=== PATIENT | male | born 1930 | race Caucasian/White ===

== ENCOUNTER 2020-10-20 10:26 | Observation (INO) | payer MEDICARE, BC, MEDICAID ==
[2020-10-20] MEDS ORDERED: Acetaminophen 500 MG Tab PO ONE (11:37)
[2020-10-20] MEDS ORDERED: traMADol 50 MG Tab PO ONE (11:37)
[2020-10-20] MEDS: traMADol 50 MG Tab PO ONE ×2 (11:43→12:56)
--- NOTE | 2020-10-20 14:00 | CR ---
INDICATION: Fall, left shoulder pain. LEFT SHOULDER: Four images of the left shoulder in three projections were obtained 10/20/20 - no comparisons. There is some sclerosis of the undersurface of the acromion raising question of a degree of impingement. However, the humerus in the glenoid fossa appears to be normally situated. No significant appearing degenerative changes for age could be identified, although there may be some demineralization present. An acute fracture or dislocation was not identified. Adjacent ribs and lung appeared unremarkable. IMPRESSION: No acute fracture or dislocation. MTDD
--- NOTE | 2020-10-20 14:03 | CR ---
INDICATION: Fall, left hip pain. LEFT HIP WITH PELVIS: AP view of the pelvis and left hip with a lateral of the left hip were obtained 10/20/20 - no comparisons. 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 There is some irregularity at the inferior pubic ramus compatible with a fracture site. There is also comminuted fracture of the superior pubic ramus also on the left. Position and alignment appear to be adequate with moderate deformity. The hip joint itself appears to be intact bilaterally, except to note some narrowing of the craniolateral left hip joint space compared with the right. Sacroiliac joints appear to be intact with minimal hypertrophic degenerative changes suggested. Slightly demineralized bony structures raise question of osteoporosis. IMPRESSION: Left inferior and superior pubic ramus fracture sites with moderate deformity and a degree of comminution at both sites. Adequate position and alignment are probably present. Report was called to ER at 1220 hours. LUIS DANIEL
[2020-10-20] MEDS ORDERED: guaiFENesin 100 MG/5 ML Soln 5 ML UD Cup PO PRN (15:09)
[2020-10-20] MEDS ORDERED: Loperamide 2 MG Cap PO PRN (15:09)
[2020-10-20] MEDS ORDERED: Acetaminophen 325 MG Tab PO PRN (15:09)
[2020-10-20] MEDS ORDERED: Bisacodyl 10 MG Supp RECTAL PRN (15:09)
--- NOTE | 2020-10-20 15:09 | PCM.HP.2 ---
H&P History of Present Illness - General Date of Service: 10/20/20 Admit Problem/Dx: Admission Diagnosis/Problem Admission Diagnosis/Problem Fracture of inferior pubic ramus with routine healing Source of Information: EMS Notes Reviewed, Family - History of Present Illness Initial Comments - Free Text/Narative: Benedicto fell yesterday morning at the [facility] where he resides but today was requiring more assistance with walking having more pain on the left, bruise on the left leg and abrasions on both his knees. Seen in ER and found to have left inferior ramus fracture, comminuted non-displaced, received Tylenol 1000 mg and Tramadol 100 mg and helped with pain. Labs unremarkable. UA pending. COVID negative. L shoulder & L hip Pain Score (Numeric/FACES): 5 - Related Data Allergies/Adverse Reactions: Allergies Allergy/AdvReac Type Severity Reaction Status Date / Time No Known Allergies Allergy Verified 10/20/20 10:36 Home Medications: Home Meds Acetaminophen 650 mg PO Q4HR PRN 10/20/20 [History] Aspirin [Halfprin] 81 mg PO DAILY@1200 10/20/20 [History] Bisacodyl [Laxative Suppository] 10 mg RECTAL BID PRN 10/20/20 [History] Donepezil [Aricept] 5 mg PO DAILY@1800 10/20/20 [History] FLUoxetine HCl [Fluoxetine HCl] 20 mg PO DAILY@1200 10/20/20 [History] Loperamide HCl [Imodium A-D] 2 mg PO ASDIRECTED PRN 10/20/20 [History] Mag Hydrox/Aluminum Hyd/Simeth [Mylanta Maximum Strength Liq] 10 ml PO QID PRN 10/20/20 [History] Magnesium Hydroxide [Milk of Magnesia] 2,400 mg PO DAILY PRN 10/20/20 [History] QUEtiapine [SEROquel] 50 mg PO BEDTIME 10/20/20 [History] carvediloL [Carvedilol] 3.125 mg PO BID@,18 10/20/20 [History] glipiZIDE [Glucotrol] 10 mg PO BID@,18 10/20/20 [History] guaiFENesin [Robitussin] 200 mg PO Q4HR PRN 10/20/20 [History] Past Medical History Cardiovascular History: Reports: CAD, High Cholesterol, Hypertension, [place], Pacemaker Psychiatric History: Reports: Dementia Endocrine/Metabolic History: Reports: Diabetes, Type II - Infectious Disease History Infectious Disease History: Reports: Measles, Mumps - Past Surgical History Head Surgeries/Procedures: Reports: None HEENT Surgical History: Reports: Tonsillectomy Cardiovascular Surgical History: Reports: Pacer Musculoskeletal Surgical History: Reports: Shoulder Replacement Other Musculoskeletal Surgeries/Procedures:: R shoulder Social & Family History - Tobacco Use Tobacco Use Status *Q: Former Tobacco User Years of Tobacco use: 10 Used Tobacco, but Quit: Yes Month/Year Tobacco Last Used: dec - Caffeine Use Caffeine Use: Reports: Coffee, Soda - Recreational Drug Use Recreational Drug Use: No H&P Review of Systems - Review of Systems: Review Of Systems: See Below HEENT: Reports: No Symptoms Pulmonary: Reports: No Symptoms Cardiovascular: Reports: No Symptoms Gastrointestinal: Reports: No Symptoms Genitourinary: Reports: Incontinence Musculoskeletal: Reports: Leg Pain Skin: Reports: Bruising, Wound (abrasions), Lumps (lipoma on her back) Neurological: Reports: Confusion Exam - Exam Exam: See Below - Vital Signs Vital Signs: Last Vital Signs Temp 96.9 F 10/20/20 13:00 Pulse 69 10/20/20 13:56 Resp 18 10/20/20 13:56 BP 109/60 10/20/20 13:56 Pulse Ox 95 10/20/20 13:56 Weight: 160 lb - Exam General: Alert, Oriented (person), Cooperative. No: Mild Distress HEENT: EOMI, Hearing Intact, Mucosa Moist & [place] Lungs: Clear to Auscultation, Normal Respiratory Effort Cardiovascular: Regular Rate, Regular Rhythm GI/Abdominal Exam: Normal Bowel Sounds, Soft, Distended, Tender (diffuse). No: Guarding, Rigid, Rebound (Male) Exam: Deferred Rectal (Males) Exam: Deferred Back Exam: Normal Inspection (5 cm lipoma on left thorax) Extremities: No Pedal Edema, Pallor. No: Joint Swelling, Increased Warmth Skin: Ecchymosis (left posterior hip), Wound (abrasion on right knee, lateral knee, left knee, bilateral elbows.) Neuro Extensive - Mental Status: Disorientation to Time, Memory Loss-Recent Events, Nl Response to Commands - Patient Data Lab Results Last 24 hrs: Laboratory Results - last 24 hr 10/20/20 10/20/20 10/20/20 Range/Units 11:25 11:25 11:40 WBC 8.9 (3.2-10.1) x10-3/uL RBC 4.71 (3.90-5.90) x10(6)uL Hgb 12.8 L (12.9-17.7) g/dL Hct 38.5 (38.3-50.1) % MCV 81.8 (80.8-98.7) fL MCH 27.1 (27.0-33.3) pg MCHC 33.1 (28.7-35.3) g/dL RDW 15.0 (12.4-15.0) % Plt Count 175 (117-477) x10(3)uL MPV 7.8 (6.7-11.0) fL Neut % (Auto) 64.8 (40.3-71.8) % Lymph % (Auto) 24.1 (15.8-45.3) % [place] % (Auto) 8.9 (5.5-15.2) % Eos % (Auto) 1.7 (0.1-6.8) % Baso % (Auto) 0.5 (0.3-3.8) % Neut # (Auto) 5.8 (1.7-6.9) x10-3/uL Lymph # (Auto) 2.1 (0.5-4.5) x10-3/uL [place] # (Auto) 0.8 (0.0-1.2) x10-3/uL Eos # (Auto) 0.2 (0.0-0.6) x10-3/uL Baso # (Auto) 0.0 (0.0-0.3) x10-3/uL Sodium 136 (135-145) mmol/L Potassium 4.1 (3.5-5.3) mmol/L Chloride 98 L (100-110) mmol/L Carbon Dioxide 31 (21-32) mmol/L BUN 16 (7-18) mg/dL Creatinine 1.2 (0.70-1.30) mg/dL Est Cr Clr Drug Dosing 42.84 mL/min Estimated GFR (MDRD) 57 L (>60) BUN/Creatinine Ratio 13.3 (9-20) Glucose 261 H (80-116) mg/dL Calcium 8.5 L (8.6-10.2) mg/dL Total Bilirubin 1.0 (0.1-1.3) mg/dL AST 36 H (5-25) IU/L ALT 21 (12-36) U/L Alkaline Phosphatase 75 (56-112) IU/L Total Protein 7.5 (6.0-8.0) g/dL Albumin 3.0 (2.9-4.5) g/dL Globulin 4.5 g/dL Albumin/Globulin Ratio 0.7 SARS-CoV-2 RNA (EVELYNE) Negative (NEGATIVE) Result Diagrams: 10/20/20 11:25 10/20/20 11:25 James Results Last 24 hrs: Microbiology 10/20/20 11:40 Influenza Type A Antigen Screen - Final Nasopharyngeal Swab NEGATIVE INFLUENZA A VIRUS AG REFERENCE RANGE: NEGATIVE Influenza Type B Antigen Screen - Final NEGATIVE INFLUENZA B VIRUS AG REFERENCE RANGE: NEGATIVE Sepsis Event Note - Evaluation Sepsis Screening Result: No Definite Risk - Focused Exam Vital Signs: Vital Signs Temp Pulse Resp BP Pulse Ox 10/20/20 13:56 69 18 109/60 95 10/20/20 13:30 63 18 116/61 96 10/20/20 13:00 96.9 F 59 L 18 123/57 L 98 10/20/20 12:30 63 16 115/60 99 10/20/20 12:01 61 16 139/59 L 100 10/20/20 11:30 61 18 150/66 H 99 10/20/20 10:26 98.0 F 77 18 151/74 H 96 *Q Meaningful Use (ADM) - VTE *Q VTE Mechanical Contraindications *Q: At Risk for Falls - VTE Risk Assess *Q Each Risk Factor Represents 1 Point: None Total Score 1 Point Risk Factors: 0 Each Risk Factor Represents 2 Points: Patient confined to bed greater than 72 hours Total Score 2 Point Risk Factors: 2 Each Risk Factor Represents 3 Points: Age 75 Years or Greater Total Score 3 Point Risk Factors: 3 Each Risk Factor Represents 5 Points: Hip, Pelvis or Leg Fracture, Less than 1 month Total Score 5 Point Risk Factors: 5 Venous Thromboembolism Risk Factor Score *Q: 10 - Problem List (1) Fracture of left inferior pubic ramus with routine healing SNOMED Code(s): 557235402 ICD Code: S32.592D - OTH FRACTURE OF LEFT PUBIS, SUBS FOR FX W ROUTN HEAL Status: Acute Current Visit: Yes (2) Fall at home SNOMED Code(s): 89339541 ICD Code: W19.XXXA - UNSPECIFIED FALL, INITIAL ENCOUNTER; Y92.009 - UNSP PLACE IN [facility] Status: Acute Current Visit: Yes (3) Dementia SNOMED Code(s): 88094374 ICD Code: F03.90 - UNSPECIFIED DEMENTIA WITHOUT BEHAVIORAL DISTURBANCE Status: Chronic Current Visit: Yes (4) Diabetes SNOMED Code(s): 10451206 ICD Code: E11.9 - TYPE 2 DIABETES MELLITUS WITHOUT COMPLICATIONS Status: Chronic Current Visit: Yes Problem List Initiated/Reviewed/Updated: Yes Orders Last 24hrs: Active Orders 24 hr Category Date Time Status Patient Status Manage Transfer [TRANSFER] Routine ADT 10/20/20 13:18 Active Patient Status [ADT] Routine ADT 10/20/20 14:55 Active Blood Glucose Check, Bedside [RC] BIDMEALS Care 10/20/20 14:55 Active Oxygen Therapy [RC] PRN Care 10/20/20 14:55 Active Up With Assistance [RC] ASDIRECTED Care 10/20/20 14:55 Active VTE/DVT Education [RC] Per Unit Routine Care 10/20/20 14:55 Active Vital Signs [RC] QSHIFT Care 10/20/20 14:55 Active OT Evaluation and Treatment [CONS] Routine Cons 10/20/20 14:55 Active PT Evaluation and Treatment [CONS] Routine Cons 10/20/20 14:55 Active Regular Diet [DIET] Diet 10/20/20 Dinner Active Chest 1V Frontal [CR] Stat Exams 10/20/20 11:36 Taken UA W/MICROSCOPIC [URIN] Stat Lab 10/20/20 11:36 Ordered Acetaminophen [TylenoL] Med 10/20/20 15:00 Ordered 500 mg PO Q6H Ibuprofen [Motrin] Med 10/20/20 15:00 Ordered 200 mg PO Q6H traMADol [Ultram] Med 10/20/20 15:01 Ordered 50 mg PO Q6H PRN Antiembolic Hose [OM.PC] Per Unit Routine Oth 10/20/20 14:58 Ordered Isolation [COMM] Routine Oth 10/20/20 11:35 Ordered Resuscitation Status Routine Resus Stat 10/20/20 14:55 Ordered Medication Orders Acetaminophen (Tylenol) 500 mg PO Q6H MARIA ESTHER Ibuprofen (Motrin) 200 mg PO Q6H MARIA ESTHER Tramadol HCl (Ultram) 50 mg PO Q6H PRN PRN Reason: Pain (moderate 4-6) Assessment/Plan Comment:: 1. Admit for observation for left inferior ramus fracture for pain control and therapies. 2. PT/OT evaluate and treat. 3. Pain: Tylenol 500 mg q6h and Ibuprofen 200 mg q6h, Tramadol 50 mg q6h as needed pain. 4. Diet: Regular, accuchecks bid. 5. Up with assistance. 6. DVT: TEDs, Lovenox 40 mg SQ daily. 7. CODE: DNR/DNI. He is a one person assist at [facility], was 2 person assistance today, would need to be back to baseline. Daughter would like if he needs [place] [facility] or [place]. - Mortality Measure Prognosis:: Good
[2020-10-20] MEDS ORDERED: Aluminum Hydroxide/Magnesium Hydroxide Susp 30 ML Cup PO PRN (15:29)
[2020-10-20] MEDS ORDERED: Magnesium Hydroxide 400 MG/5 ML Susp 30 ML Cup PO PRN (15:30)
[2020-10-20] MEDS ORDERED: Enoxaparin 30 MG/0.3 ML Syringe SUBCUT SCH (16:00)
[2020-10-20] MEDS: Clotrimazole 1% Crm 15 GM Tube TOP SCH ×2 (17:17→20:17)
[2020-10-20] MEDS: Acetaminophen 500 MG Tab PO SCH ×2 (17:18→21:57)
[2020-10-20] MEDS: Ibuprofen 200 MG Tab PO SCH ×2 (17:18→21:57)
[2020-10-20] MEDS: Carvedilol 3.125 MG Tab *PTOM PO SCH (17:19)
[2020-10-20] MEDS: FLUoxetine 20 MG Cap *PTOM PO SCH (17:20)
[2020-10-20] MEDS: GLIPIZIDE 10 MG PO SCH (17:21)
[2020-10-20] MEDS ORDERED: traMADol 50 MG Tab PO PRN (18:00)
[2020-10-20] MEDS ORDERED: DONEPEZIL 5 MG PO SCH (18:00)
--- NOTE | 2020-10-20 18:02 | EDM.PDOC ---
ED HPI GENERAL MEDICAL PROBLEM - General Chief Complaint: Lower Extremity Injury/Pain Stated Complaint: FALL Time Seen by Provider: 10/20/20 10:35 Source of Information: Reports: EMS Notes Reviewed, Family History Limitations: Reports: No Limitations - History of Present Illness INITIAL COMMENTS - FREE TEXT/NARRATIVE: Patient presented to the ED from the [facility] because of a recent fall and he c/o left shoulder and left hip piin. there was no LOC after the fall. He doesn't have any cough/cold, fever,chills, N/V/D. Lower Back Pain Score (Numeric/FACES): 4 L shoulder & L hip Pain Score (Numeric/FACES): 5 - Related Data Allergies Allergy/AdvReac Type Severity Reaction Status Date / Time No Known Allergies Allergy Verified 10/20/20 10:36 Home Meds: Home Meds Acetaminophen 650 mg PO Q4HR PRN 10/20/20 [History] Aspirin [Halfprin] 81 mg PO DAILY@1200 10/20/20 [History] Bisacodyl [Laxative Suppository] 10 mg RECTAL BID PRN 10/20/20 [History] Donepezil [Aricept] 5 mg PO DAILY@1800 10/20/20 [History] FLUoxetine HCl [Fluoxetine HCl] 20 mg PO DAILY@1200 10/20/20 [History] Loperamide HCl [Imodium A-D] 2 mg PO ASDIRECTED PRN 10/20/20 [History] Mag Hydrox/Aluminum Hyd/Simeth [Mylanta Maximum Strength Liq] 10 ml PO QID PRN 10/20/20 [History] Magnesium Hydroxide [Milk of Magnesia] 2,400 mg PO DAILY PRN 10/20/20 [History] QUEtiapine [SEROquel] 50 mg PO BEDTIME 10/20/20 [History] carvediloL [Carvedilol] 3.125 mg PO BID@,18 10/20/20 [History] glipiZIDE [Glucotrol] 10 mg PO BID@,18 10/20/20 [History] guaiFENesin [Robitussin] 200 mg PO Q4HR PRN 10/20/20 [History] Past Medical History Cardiovascular History: Reports: CAD, High Cholesterol, Hypertension, [place], Pacemaker Psychiatric History: Reports: Dementia Endocrine/Metabolic History: Reports: Diabetes, Type II - Infectious Disease History Infectious Disease History: Reports: Measles, Mumps - Past Surgical History Head Surgeries/Procedures: Reports: None HEENT Surgical History: Reports: Tonsillectomy Cardiovascular Surgical History: Reports: Pacer Musculoskeletal Surgical History: Reports: Shoulder Replacement Other Musculoskeletal Surgeries/Procedures:: R shoulder Social & Family History - Tobacco Use Tobacco Use Status *Q: Unknown Ever Used Tobacco Years of Tobacco use: 10 Used Tobacco, but Quit: Yes Month/Year Tobacco Last Used: dec - Caffeine Use Caffeine Use: Reports: Energy Drinks - Recreational Drug Use Recreational Drug Use: No ED ROS GENERAL - Review of Systems Review Of Systems: See Below Constitutional: Reports: No Symptoms HEENT: Reports: No Symptoms Respiratory: Reports: No Symptoms Cardiovascular: Reports: No Symptoms Endocrine: Reports: No Symptoms GI/Abdominal: Reports: No Symptoms : Reports: No Symptoms Musculoskeletal: Reports: Other (left hip pain) Skin: Reports: No Symptoms Neurological: Reports: No Symptoms ED EXAM, GENERAL - Physical Exam Exam: See Below Exam Limited By: No Limitations General Appearance: Alert, No Apparent Distress Ears: Normal External Exam, Normal [place] Nose: Normal Inspection, Normal Mucosa Throat/Mouth: Normal Inspection, Normal Lips, Normal Teeth Head: Atraumatic, Normocephalic Neck: Normal Inspection, Supple, Non-Tender Respiratory/Chest: No Respiratory Distress, Lungs Clear, Normal Breath Sounds Cardiovascular: Normal Peripheral Pulses, Regular Rate, Rhythm, No Edema, No Gallop, No JVD, No Murmur GI/Abdominal: Normal Bowel Sounds, Soft, Distended, Tender (diffuse). No: Guarding, Rigid, Rebound Back Exam: Normal Inspection (5 cm lipoma on left thorax) Extremities: No Pedal Edema, Pallor. No: Joint Swelling, Increased Warmth Course - Vital Signs Text/Narrative:: Labs/CXR/Pelvis and hip xray was discussed with patient There is inferior and superior pubic ramus fracture Tylenol 1000 mg and tramadol 100 mg po x1 with significant relief of his pain Dr. Acevedo-ortho forestry conservation worker at [place] recommended to just treat the patient symptomatically without any restrictions. He is allowed to bear weight for as long as he can tolerate. Last Recorded V/S: Last Vital Signs Temp 36.7 C 10/20/20 17:18 Pulse 0 L 10/20/20 17:19 Resp 18 10/20/20 13:56 BP 0/0 L 10/20/20 17:19 Pulse Ox 95 10/20/20 17:18 - Orders/Labs/Meds Orders: Active Orders 24 hr Category Date Time Status Chest 1V Frontal [CR] Stat Exams 10/20/20 11:36 Taken UA W/MICROSCOPIC [URIN] Stat Lab 10/20/20 11:36 Ordered Medication Orders Acetaminophen (Tylenol Extra Strength) 500 mg PO Q6H [facility] Last Admin: 10/20/20 17:18 Dose: 500 mg Documented by: KENAN Acetaminophen (Tylenol) 650 mg PO Q4H PRN PRN Reason: Fever Al Hydroxide/Mg Hydroxide (Mag-Al Susp) 10 ml PO QID PRN PRN Reason: Indigestion Aspirin (Halfprin) 81 mg PO DAILY [facility] Bisacodyl (Dulcolax) 10 mg RECTAL BID PRN PRN Reason: Constipation Carvedilol (Coreg) 3.125 mg PO BID@1200,1800 [facility] Last Admin: 10/20/20 17:19 Dose: 3.125 mg Documented by: KENAN Clotrimazole (Clotrimazole 1%) 0 gm TOP BID [facility] Last Admin: 10/20/20 17:17 Dose: 1 applic Documented by: KENAN Donepezil HCl (Aricept) 5 mg PO DAILY@1800 [facility] Last Admin: 10/20/20 17:21 Dose: 5 mg Documented by: KENAN Enoxaparin Sodium (Lovenox) 30 mg SUBCUT Q24H [facility] Last Admin: 10/20/20 17:18 Dose: 30 mg Documented by: KENAN Fluoxetine HCl (Prozac) 20 mg PO DAILY@1200 [facility] Last Admin: 10/20/20 17:20 Dose: 20 mg Documented by: KENAN Glipizide (Glucotrol) 10 mg PO BID@1200,1800 [facility] Last Admin: 10/20/20 17:21 Dose: 10 mg Documented by: KENAN Guaifenesin (Robitussin) 200 mg PO Q4H PRN PRN Reason: Cough Ibuprofen (Motrin) 200 mg PO Q6H [facility] Last Admin: 10/20/20 17:18 Dose: 200 mg Documented by: KENAN Loperamide HCl (Imodium) 2 mg PO ASDIRECTED PRN PRN Reason: Diarrhea Magnesium Hydroxide (Milk Of Magnesia) 30 ml PO DAILY PRN PRN Reason: Constipation Quetiapine Fumarate (Seroquel) 50 mg PO BEDTIME MARIA ESTHER Tramadol HCl (Ultram) 50 mg PO Q6H PRN PRN Reason: Pain (moderate 4-6) Labs: Laboratory Tests 10/20/20 10/20/20 10/20/20 Range/Units 11:25 11:25 11:40 WBC 8.9 (3.2-10.1) x10-3/uL RBC 4.71 (3.90-5.90) x10(6)uL Hgb 12.8 L (12.9-17.7) g/dL Hct 38.5 (38.3-50.1) % MCV 81.8 (80.8-98.7) fL MCH 27.1 (27.0-33.3) pg MCHC 33.1 (28.7-35.3) g/dL RDW 15.0 (12.4-15.0) % Plt Count 175 (117-477) x10(3)uL MPV 7.8 (6.7-11.0) fL Neut % (Auto) 64.8 (40.3-71.8) % Lymph % (Auto) 24.1 (15.8-45.3) % [place] % (Auto) 8.9 (5.5-15.2) % Eos % (Auto) 1.7 (0.1-6.8) % Baso % (Auto) 0.5 (0.3-3.8) % Neut # (Auto) 5.8 (1.7-6.9) x10-3/uL Lymph # (Auto) 2.1 (0.5-4.5) x10-3/uL [place] # (Auto) 0.8 (0.0-1.2) x10-3/uL Eos # (Auto) 0.2 (0.0-0.6) x10-3/uL Baso # (Auto) 0.0 (0.0-0.3) x10-3/uL Sodium 136 (135-145) mmol/L Potassium 4.1 (3.5-5.3) mmol/L Chloride 98 L (100-110) mmol/L Carbon Dioxide 31 (21-32) mmol/L BUN 16 (7-18) mg/dL Creatinine 1.2 (0.70-1.30) mg/dL Est Cr Clr Drug Dosing 42.84 mL/min Estimated GFR (MDRD) 57 L (>60) BUN/Creatinine Ratio 13.3 (9-20) Glucose 261 H (80-116) mg/dL Calcium 8.5 L (8.6-10.2) mg/dL Total Bilirubin 1.0 (0.1-1.3) mg/dL AST 36 H (5-25) IU/L ALT 21 (12-36) U/L Alkaline Phosphatase 75 (56-112) IU/L Total Protein 7.5 (6.0-8.0) g/dL Albumin 3.0 (2.9-4.5) g/dL Globulin 4.5 g/dL Albumin/Globulin Ratio 0.7 SARS-CoV-2 RNA (EVELYNE) Negative (NEGATIVE) Meds: Medications Generic Name Dose Route Start Last Admin Trade Name Freq PRN Reason Stop Dose Admin Acetaminophen 500 mg 10/20/20 16:00 10/20/20 17:18 Tylenol Extra Strength PO 500 mg Q6H MARIA ESTHER Administration Acetaminophen 650 mg 10/20/20 15:09 Tylenol PO Q4H PRN Fever Al Hydroxide/Mg Hydroxide 10 ml 10/20/20 15:29 Mag-Al Susp PO QID PRN Indigestion Aspirin 81 mg 10/21/20 09:00 Halfprin PO DAILY MARIA ESTHER Bisacodyl 10 mg 10/20/20 15:09 Dulcolax RECTAL BID PRN Constipation Carvedilol 3.125 mg 10/20/20 18:00 10/20/20 17:19 Coreg PO 3.125 mg BID@1200,1800 MARIA ESTHER Administration Clotrimazole 0 gm 10/20/20 16:00 10/20/20 17:17 Clotrimazole 1% TOP 1 applic BID MARIA ESTHER Administration Donepezil HCl 5 mg 10/20/20 18:00 10/20/20 17:21 Aricept PO 5 mg DAILY@1800 MARIA ESTHER Administration Enoxaparin Sodium 30 mg 10/20/20 16:00 10/20/20 17:18 Lovenox SUBCUT 30 mg Q24H MARIA ESTHER Administration Fluoxetine HCl 20 mg 10/20/20 16:00 10/20/20 17:20 Prozac PO 20 mg DAILY@1200 [facility] Administration Glipizide 10 mg 10/20/20 18:00 10/20/20 17:21 Glucotrol PO 10 mg BID@1200,1800 MARIA ESTHER Administration Guaifenesin 200 mg 10/20/20 15:09 Robitussin PO Q4H PRN Cough Ibuprofen 200 mg 10/20/20 16:00 10/20/20 17:18 Motrin PO 200 mg Q6H MARIA ESTHER Administration Loperamide HCl 2 mg 10/20/20 15:09 Imodium PO ASDIRECTED PRN Diarrhea Magnesium Hydroxide 30 ml 10/20/20 15:30 Milk Of Magnesia PO DAILY PRN Constipation Quetiapine Fumarate 50 mg 10/20/20 21:00 Seroquel PO BEDTIME MARIA ESTHER Tramadol HCl 50 mg 10/20/20 18:00 Ultram PO Q6H PRN Pain (moderate 4-6) Discontinued Medications Generic Name Dose Route Start Last Admin Trade Name Freq PRN Reason Stop Dose Admin Acetaminophen 1,000 mg 10/20/20 11:37 10/20/20 11:43 Tylenol Extra Strength PO 10/20/20 11:38 1,000 mg ONETIME ONE Administration Tramadol HCl 100 mg 10/20/20 13:00 10/20/20 11:43 Ultram PO 10/20/20 13:01 100 mg ONETIME ONE Administration Departure - Departure Time of Disposition: 15:00 Disposition: Refer to Observation Clinical Impression: Pubic ramus fracture - Discharge Information Sepsis Event Note (ED) - Evaluation Sepsis Screening Result: No Definite Risk - Focused Exam Vital Signs: Vital Signs Temp Pulse Resp BP Pulse Ox 10/20/20 13:00 36.1 C 59 L 18 123/57 L 98 10/20/20 12:30 63 16 115/60 99 10/20/20 12:01 61 16 139/59 L 100 10/20/20 11:30 61 18 150/66 H 99 10/20/20 10:26 36.7 C 77 18 151/74 H 96 - My Orders Last 24 Hours: My Active Orders 10/20/20 11:36 Chest 1V Frontal [CR] Stat UA W/MICROSCOPIC [URIN] Stat - Assessment/Plan Last 24 Hours: My Active Orders 10/20/20 11:36 Chest 1V Frontal [CR] Stat UA W/MICROSCOPIC [URIN] Stat
[2020-10-20] MEDS ORDERED: QUEtiapine 50 MG Tab *PTOM PO SCH (21:00)
[2020-10-21] MEDS: Ibuprofen 200 MG Tab PO SCH ×3 (04:18→10:21)
[2020-10-21] MEDS: Acetaminophen 500 MG Tab PO SCH ×2 (04:18→09:13)
--- NOTE | 2020-10-21 08:02 | CR ---
INDICATION: Fever. CHEST ONE VIEW: An AP upright portable view of the chest 10/20/20 was compared with 05/05/20 and 05/11/10 examinations. The heart is enlarged with LVE. The aorta is tortuous with calcification in the arch and descending portion. Median sternotomy is again noted. Bipolar pacemaker leads are unchanged in position. Pulmonary markings appear similar to the previous studies allowing for relatively poor inspiration currently, without a definite active infiltrate or effusion identified. Lungs appear to be slightly hyperaerated with slight flattening of the left hemidiaphragm leaf raising question of a process such as COPD. IMPRESSION: 1. No definite acute process. 2. ASHD with LVE, previous median sternotomy, bipolar pacemaker leads. 3. Lungs appears to be somewhat hyperaerated. MTDD
[2020-10-21] MEDS: Clotrimazole 1% Crm 15 GM Tube TOP SCH (08:54)
[2020-10-21] MEDS ORDERED: Aspirin 81 MG Tab.EC *PTOM PO SCH (09:00)
[2020-10-21] MEDS ORDERED: traMADol 50 MG Tab PO SCH (10:15)
--- NOTE | 2020-10-21 11:27 | PN ---
DATE SEEN: 10/21/2020 SUBJECTIVE: Benedicto Dixon is an 89-year-old male from seen today for review. Took a fall, sustaining a fracture of his pelvis. Radiographs revealed left inferior and superior ramus fractures with moderate deformity and degree of comminution of both sides, adequate position and alignment. Radiographs of the shoulder and chest unremarkable. LABORATORY STUDIES: On admission on 10/20, white count 8900, hemoglobin 12.8, normal indices. Electrolytes: GFR of 57, glucose 61, and calcium . AST of 36. MEDICATIONS: Noted and appropriate, is on 10 mg of glipizide. Meds upon review. PHYSICAL EXAMINATION: VITAL SIGNS: 36.7, 62, 107/44, mean blood pressure 65, respirations 20, and 95%. GENERAL: Soft spoken, withdrawn, drowsy. HEENT: Mouth and oropharynx clear. NECK: Benign. Thyroid small. CHEST: On auscultation, clear in all lung merino. HEART: No ectopy or murmur. ABDOMEN: Benign. Tender upon pelvic pressure. ASSESSMENT: Bilateral pelvic ramus fractures. PLAN: Pain control, close observation, PT. Expectation for lengthy stay. /[id number] /IMAN
[2020-10-21] MEDS: Carvedilol 3.125 MG Tab *PTOM PO SCH (12:15)
[2020-10-21] MEDS: FLUoxetine 20 MG Cap *PTOM PO SCH (12:16)
[2020-10-21] MEDS: GLIPIZIDE 10 MG PO SCH (12:17)
--- NOTE | 2020-10-21 12:24 | DISCH ---
DISCHARGE DATE: 10/21/2020 HOSPITAL COURSE: Benedicto Dixon is an 89-year-old male who resides at [facility]. He sustained a fall resulting in a comminuted fracture of both left and right angelia pelvis. Ambulance course skills o f course are limited. Please see admitting doctor's history and physical. PT/OT, opportunity for treatment to swing bed. PHYSICAL EXAMINATION: VITAL SIGNS: 36.6, 62, 119/57, 18, 94%. GENERAL: Soft spoken. A bit withdrawn. Sleepy. MOUTH AND OROPHARYNX: Clear. NECK: Benign. Thyroid small. CHEST: Clear in all lung merino. HEART: Distant heart sounds. Occasional ectopy. Soft murmur. ABDOMEN: Benign. No hepatosplenomegaly. Tender over the pelvis. EXTREMITIES: Pelvic fractures. PLAN: We will plan transfer from acute care to rehab with no usp bed available at this time due to COVID pandemic. /[id number] 1155 COY/IMAN CARY
== END 2020-10-21 12:30 | disposition swing bed (61) ==
LOC: FB.ED 10:26 → FB.MS 13:18
PROVIDERS: ADMIT Emergency Medicine; ATTEND Family Medicine
DX: S32.592A Other specified fracture of left pubis, initial encounter for closed fracture (principal); S32.591A Other specified fracture of right pubis, initial encounter for closed fracture; I25.10 Atherosclerotic heart disease of native coronary artery without angina pectoris; E78.00 Pure hypercholesterolemia, unspecified; I10 Essential (primary) hypertension; I25.2 Old myocardial infarction; E11.9 Type 2 diabetes mellitus without complications; F03.90 Unspecified dementia, unspecified severity, without behavioral disturbance, psychotic disturbance, mood disturbance, and anxiety; Z20.828 Contact with and (suspected) exposure to other viral communicable diseases; Z87.891 Personal history of nicotine dependence; Z98.890 Other specified postprocedural states; W19.XXXA Unspecified fall, initial encounter; Z79.899 Other long term (current) drug therapy; Z79.82 Long term (current) use of aspirin; Z95.0 Presence of cardiac pacemaker; Z79.84 Long term (current) use of oral hypoglycemic drugs; Y92.009 Unspecified place in unspecified non-institutional (private) residence as the place of occurrence of the external cause
CPT/HCPCS: 36415; 71045; 73030-LT; 73502-LT; 80053; 81001; 82962; 85025; 87804; 87804-59; 96372; 99284-25; A9270-GY; G0378; J1650; U0002

== ENCOUNTER 2020-10-21 10:46 | Inpatient (IN) | payer MEDICARE, BC, MEDICAID ==
[2020-10-21] MEDS: Enoxaparin 30 MG/0.3 ML Syringe SUBCUT SCH (17:00)
[2020-10-21] MEDS: traMADol 50 MG Tab PO SCH ×2 (17:06→22:01)
[2020-10-21] MEDS: Donepezil 5 MG Tab PO SCH (17:06)
[2020-10-21] MEDS: Carvedilol 3.125 MG Tab PO SCH (17:07)
[2020-10-22] MEDS: traMADol 50 MG Tab PO SCH ×4 (04:57→22:06)
--- NOTE | 2020-10-22 11:11 | PN ---
DATE SEEN: 10/22/2020 SUBJECTIVE: Benedicto Dixon is an 89-year-old male, resides at the [facility]. Took a fall. Has probably ramus pelvic fracture. He has been a little less intuitive in terms of assistance. Much more awake, alert and appropriate. Analgesics on board include Ultram 50 mg 1 p.o. q.i.d. p.r.n. for pain. We will discontinue the Ultram, switch to Tylenol. More awake and alert today. LABORATORY STUDIES: Upon admission, 11.8 hemoglobin, 36.3 hematocrit. Glucose 240 and 223. Glucotrol on board. PHYSICAL EXAMINATION: VITAL SIGNS: 36.7, 64, 128/64, 16, and 94%. GENERAL: More awake today. Conversant. NECK: Benign. Thyroid small. CHEST: On auscultation, clear in all lung merino. HEART: No ectopy or murmur. ABDOMEN: Benign. Tender over the pelvis. ASSESSMENT: Pelvic fracture. PLAN: PT actively involved. We will switch from Ultram to Tylenol. Pain appears to be well controlled. /[id number] 1105 /IMAN
[2020-10-22] MEDS: FLUoxetine 20 MG Cap PO SCH (11:12)
[2020-10-22] MEDS: Aspirin 81 MG Tab.Chew PO SCH (11:12)
[2020-10-22] MEDS: Carvedilol 3.125 MG Tab PO SCH ×2 (11:12→17:09)
[2020-10-22] MEDS: Enoxaparin 30 MG/0.3 ML Syringe SUBCUT SCH (17:09)
[2020-10-22] MEDS: Donepezil 5 MG Tab PO SCH (17:09)
[2020-10-23] MEDS: traMADol 50 MG Tab PO SCH ×2 (05:44→10:29)
[2020-10-23] MEDS: Aspirin 81 MG Tab.Chew PO SCH (10:29)
--- NOTE | 2020-10-23 11:00 | PN ---
DATE SEEN: 10/23/2020 SUBJECTIVE: Benedicto Dixon is an 89-year-old male admitted from [facility]. Sustained a fall and pubic ramus fracture. Compliance with therapy unknown. More brightly, alert, awake. Describes no complicated pain. OBJECTIVE: VITAL SIGNS: 36.8, 67, 132/71, 18, and 95. GENERAL: More awake, more alert. Lying on his right side. CHEST: Clear in all lung merino. HEART: No ectopy or murmur. ABDOMEN: Benign. LABORATORY STUDIES: Sugars 240, 223, and 285 on glipizide. ASSESSMENT: Pelvic fracture. PLAN: We will adjust pain medications accordingly, be given routinely. PT more actively involved first part of the week. Return to [facility] under consideration. /[id number] 1048 COY/IMAN
[2020-10-23] MEDS ORDERED: Celecoxib 100 MG Cap ONE (11:08)
[2020-10-23] MEDS: Acetaminophen 650 MG Tab.ER PO SCH ×2 (11:10→22:14)
[2020-10-23] MEDS: FLUoxetine 20 MG Cap PO SCH (11:10)
[2020-10-23] MEDS: Celecoxib 200 MG Cap PO SCH ×2 (11:10→11:11)
[2020-10-23] MEDS: Carvedilol 3.125 MG Tab PO SCH ×2 (11:10→17:37)
[2020-10-23] MEDS: Donepezil 5 MG Tab PO SCH (17:37)
[2020-10-23] MEDS: Enoxaparin 30 MG/0.3 ML Syringe SUBCUT SCH (17:37)
[2020-10-24] MEDS: Aspirin 81 MG Tab.Chew PO SCH (11:20)
[2020-10-24] MEDS: Acetaminophen 650 MG Tab.ER PO SCH ×2 (11:21→20:21)
[2020-10-24] MEDS: Carvedilol 3.125 MG Tab PO SCH ×2 (11:21→17:26)
[2020-10-24] MEDS: FLUoxetine 20 MG Cap PO SCH (11:21)
[2020-10-24] MEDS: Celecoxib 200 MG Cap PO SCH (11:21)
--- NOTE | 2020-10-24 11:58 | PN ---
DATE SEEN: 10/24/2020 Benedicto Dixon is an 89-year-old male seen today for review. Had been to [facility]. Sustained a fall and pelvic fracture. More awake, more alert, more appropriate, more interactive. Presently in swing bed. Plans to transfer to [facility] PHYSICAL EXAMINATION: VITAL SIGNS: Stable, 36.6, 79, 140/80, 18, 94%. GENERAL: More awake, alert, bright. No obvious distress. NECK: Benign. Thyroid small. CHEST: Clear in all lung merino. HEART: No ectopy or murmur. ABDOMEN: Benign. LABORATORY DATA: Urinalysis today revealed a large amount of blood. ASSESSMENT: 1. Pelvic fracture. 2. Hematuria. PLAN: We will obtain ultrasound of his kidneys. Intervention and care as appropriate. /[id number] 1023 1104 COY/IMAN
--- NOTE | 2020-10-24 13:18 | US ---
INDICATION: Microscopic hematuria, history of previous pelvic fracture. RENAL ULTRASOUND COMPLETE: Utilizing 2-D real-time and color flow imaging, examination of the kidneys was obtained 10/24/20 - no comparisons. The urinary bladder was not evaluated due to lack of filling - it was evacuated at the time of this examination. 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 Multiple low density lesions are noted in the cortices of the kidneys bilaterally likely representing simple cysts. Some have no overlying cortex and may represent areas of scarring additionally. No evidence of obstructive uropathy or definite calculi could be identified. No solid masses were identified. IMPRESSION: 1. 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 2. Renal cortical scarring. 3. Gallbladder appears slightly distended, but is only 8.7 cm in maximum diameter by 3.6 and may simply be on the basis of NPO status. MTDD
[2020-10-24] MEDS: Donepezil 5 MG Tab PO SCH (17:26)
[2020-10-24] MEDS: Enoxaparin 30 MG/0.3 ML Syringe SUBCUT SCH (17:26)
[2020-10-25] MEDS: Acetaminophen 650 MG Tab.ER PO SCH ×2 (10:28→20:01)
[2020-10-25] MEDS: Aspirin 81 MG Tab.Chew PO SCH (10:29)
[2020-10-25] MEDS: Celecoxib 200 MG Cap PO SCH (10:30)
[2020-10-25] MEDS: FLUoxetine 20 MG Cap PO SCH (11:00)
[2020-10-25] MEDS: Carvedilol 3.125 MG Tab PO SCH ×2 (11:00→17:13)
[2020-10-25] MEDS: Enoxaparin 30 MG/0.3 ML Syringe SUBCUT SCH (17:13)
[2020-10-25] MEDS: Donepezil 5 MG Tab PO SCH (17:13)
[2020-10-26] MEDS: Acetaminophen 650 MG Tab.ER PO SCH (09:20)
[2020-10-26] MEDS: Aspirin 81 MG Tab.Chew PO SCH (09:20)
[2020-10-26] MEDS: Celecoxib 200 MG Cap PO SCH (09:20)
--- NOTE | 2020-10-26 10:00 | PN ---
DATE SEEN: 10/25/2020 SUBJECTIVE: Benedicto is an 89-year-old male, admitted with complicated bilateral pelvic fracture. He has had some gross and visible hematuria. Urology visit planned on 11/08/[address] Elizalde. Getting better though on ambulatory skills, walking. Pain appears to be controlled. Presently on Celebrex and Tylenol. LABORATORY STUDIES: None outstanding. Urinalysis noted lots of glucose, large blood, but no pyuria. PHYSICAL EXAMINATION: VITAL SIGNS: 144/72, 96, 68, 18, 97%. GENERAL: More awake, more alert, bright, requests to be sleeping. NECK: Benign. Thyroid small. CHEST: Clear in all lung merino. HEART: No ectopy. No murmur. ABDOMEN: Benign. Pelvis tender. ASSESSMENT: Bilateral pelvic ramus fractures. PLAN: PT intervention and care. Close observation. Plan discharge to [facility] on Saturday, the . /[id number] 1021 /IMAN
--- NOTE | 2020-10-26 10:00 | HP ---
ADMISSION DATE: 10/21/2020 HISTORY OF PRESENT ILLNESS: Benedicto Dixon is an 89-year-old male transferred from acute care to swing bed. He had had a complicated fall at the [facility]. He sustained a comminuted fracture. During his hospitalization, PT and OT were involved and were used as appropriate. He had some hematuria under observation. During his stay, PT was actively involved, and ambulation was improved. PAST MEDICAL HISTORY: Please see the admitting H and P. SOCIAL HISTORY: Please see the HPI. PHYSICAL EXAMINATION: VITAL SIGNS: Stable. GENERAL: An elderly gentleman, cooperative, conversant, very soft spoken, and withdrawn. HEENT: Funduscopic is benign. Bright TMs. Clear nasal discharge. Mouth and oropharynx are clear. NECK: Benign. Thyroid is small. No carotid bruits. CHEST: On auscultation, clear, all lung merino. HEART: On auscultation, no ectopy or murmur. ABDOMEN: Benign. No hepatosplenomegaly. No palpable masses. PELVIS: Mild pelvic pressure. EXTREMITIES: Well perfused. Mild venous stasis changes. Good peripheral pulses. ASSESSMENT: Pelvic fracture, bilateral ramus. PLAN: We will proceed with outpatient swing bed physical therapy, pain control, and intervention. Workup of hematuria is planned as an outpatient. /[id number] [id number] COY/IMAN
--- NOTE | 2020-10-26 14:28 | DISCH ---
DISCHARGE DATE: 10/24/2020 DIAGNOSIS: Acute pelvic fracture secondary to a fall. HOSPITAL COURSE: Benedicto Dixon is an 89-year-old male admitted with complicated fall. It occurred at [facility]. Sustained a bilateral pelvic ramus fracture. Pain a primary issue. Please see dictated history and physical. Initially, placed at bedrest, moderated pain control, ambulatory skills improved to the point of discharge to a long-term care facility, timing appropriate. Return to [facility] under consideration. PHYSICAL EXAMINATION: VITAL SIGNS: At the time of discharge, 36.6, 77, 150/57, 16, 94%. GENERAL: Soft spoken, communicative. NECK: Benign. Thyroid small. CHEST: Clear in all lung merino. No adventitious sounds. HEART: No ectopy or murmur. ABDOMEN: Benign. No palpable masses. EXTREMITIES: Well perfused, mild venous stasis changes. [facility] Pain will be controlled with Tylenol 650 two p.o. b.i.d., Celebrex 200 mg one daily. PT/OT and restorative therapy in place. He will be seen if urine continues to show hidden blood upon testing Urology outreach Dr. Elizalde and time to be determined. /[id number] 1023 COY/IMAN
== END 2020-10-26 10:10 | DRG 561 ==
LOC: FB.MS 12:31
PROVIDERS: ADMIT Family Medicine; ATTEND Family Medicine
DX: S32.592D Other specified fracture of left pubis, subsequent encounter for fracture with routine healing (principal); S32.591D Other specified fracture of right pubis, subsequent encounter for fracture with routine healing; I25.10 Atherosclerotic heart disease of native coronary artery without angina pectoris; E78.00 Pure hypercholesterolemia, unspecified; I10 Essential (primary) hypertension; Z66 Do not resuscitate; Z20.828 Contact with and (suspected) exposure to other viral communicable diseases; F03.90 Unspecified dementia, unspecified severity, without behavioral disturbance, psychotic disturbance, mood disturbance, and anxiety; E11.9 Type 2 diabetes mellitus without complications; Z96.611 Presence of right artificial shoulder joint; R31.9 Hematuria, unspecified; Z79.82 Long term (current) use of aspirin; Z79.899 Other long term (current) drug therapy; I25.2 Old myocardial infarction; Z95.0 Presence of cardiac pacemaker; Z87.891 Personal history of nicotine dependence
CPT/HCPCS: 36415; 76770; 81001; 82962; 85025; 97110-GP; 97116-GP; 97161-GP; 97165-GO; 97530-GO; 97535-GO; A9270-GY; J1650; U0002

== ENCOUNTER 2021-05-07 19:15 | Observation (INO) | payer MEDICARE, BC, MEDICAID ==
--- NOTE | 2021-05-07 19:29 | EDM.PDOC ---
ED HPI GENERAL MEDICAL PROBLEM - General Stated Complaint: FAINTING Time Seen by Provider: 05/07/21 19:25 Source of Information: Reports: EMS, Snf Records History Limitations: Reports: Other (Patient is from memory unit and demented and cannot provide us with any information.) - History of Present Illness INITIAL COMMENTS - FREE TEXT/NARRATIVE: 89-year-old male who presents to the emergency department via ambulance from the [facility] after a reported syncopal episode with bowel or bladder incontinence while he was sitting at the dining room table and after eating his meal. This apparently occurred at approximately 6:30 PM. The patient is demented and is awake somewhat conversant but he is unable to give me any history. All the history that I have obtained comes from the EMS staff report and also from my call to [facility] and discussing it with the nurse there. The nurse tells me that the patient has slept most of the day but this is not unusual for him and apparently he does sleep quite a bit through the day. He did go to supper and according to the nurse, the patient did eat all of a sudden her and drank all of his drink for some her and he was noted by staff to appears to be asleep and was leaning to the right. Apparently, this is not unusual in that he sometimes goes to sleep after eating at the dining room table. However, today, he was appearing to be very pale and they noted him to be diaphoretic and he was not responding appropriately. He was and initially when they laid him down and they were unable to get a blood pressure and his "pulse felt faint". When EMS arrived, they noted his blood pressure to be in the 80s and his pulse to be in the 70s. His O2 saturations were in the mid 90s. They established an IV and began giving him IV normal saline while en route. By the time they arrived, the patient was awake and responsive and according to the usp staff appeared to be "back to his baseline". His blood pressure was somewhat low. The patient was incontinent of urine and stool. The stool was yellow and formed/seedy and did not appear to have any blood in it. The urine also did not appear to be bloody. The patient tells me that he "feels fine" and that he "has no pain". He does appear to have some mild discomfort when I palpate his abdomen generally but he does not appear to have pain elsewhere with palpation or movement of his arms or legs. This is really all the history that I can obtain. There are no other associated signs or symptoms. There are no other modifying factors. Onset: Today (6:30 PM) Duration: Improving, Resolved Prior to Arrival Location: Reports: Abdomen Quality: Reports: Other (Unknown) Severity: Mild Improves with: Reports: Rest Worsens with: Reports: Other (Palpation) Context: Reports: Other (As above.) Associated Symptoms: Reports: No Other Symptoms Treatments HARD CAND[employer]: Reports: See EMS Report (IV normal saline was given en route.) - Related Data Allergies Allergy/AdvReac Type Severity Reaction Status Date / Time No Known Allergies Allergy Verified 05/07/21 22:40 Home Meds: Home Meds Acetaminophen 650 mg PO Q4H PRN 10/20/20 [History] FLUoxetine HCl [Fluoxetine HCl] 20 mg PO DAILY@1200 10/20/20 [History] QUEtiapine [SEROquel] 50 mg PO BEDTIME 10/20/20 [History] glipiZIDE [Glucotrol] 10 mg PO BID@12,18 10/20/20 [History] Aspirin [Halfprin] 81 mg PO DAILY 05/08/21 [History] Donepezil HCl 5 mg PO BEDTIME 05/08/21 [History] Nystatin 1 applic TOP BID 05/08/21 [History] carvediloL [Carvedilol] 3.125 mg PO BID 05/08/21 [History] metFORMIN HCl [Metformin HCl] 500 mg PO BID 05/08/21 [History] Past Medical History Cardiovascular History: Reports: CAD, High Cholesterol, Hypertension, [place], Pacemaker Psychiatric History: Reports: Dementia Endocrine/Metabolic History: Reports: Diabetes, Type II - Infectious Disease History Infectious Disease History: Reports: Measles, Mumps - Past Surgical History HEENT Surgical History: Reports: Tonsillectomy Cardiovascular Surgical History: Reports: Pacer Musculoskeletal Surgical History: Reports: Shoulder Replacement Other Musculoskeletal Surgeries/Procedures:: R shoulder Social & Family History - Tobacco Use Tobacco Use Status *Q: Unknown Ever Used Tobacco - Caffeine Use Caffeine Use: Reports: Coffee - Alcohol Use Alcohol Use Comment: Unknown. - Living Situation & Occupation Living situation: Reports: Assisted Living ([facility]) Occupation: Retired ED ROS GENERAL - Review of Systems Review Of Systems: Unable To Obtain Reason Not Obtained: Patient with dementia and cannot provide the ROS - Physical Exam Exam: See Below Exam Limited By: No Limitations General Appearance: WD/WN, No Apparent Distress, Other (Eyes closed but responds verbally all his commands.) Eye Exam: Bilateral Eye: EOMI, Normal Inspection (Sclera are anicteric), PERRL Ears: Normal External Exam, Hearing Grossly Normal Nose: Normal Inspection, Normal Mucosa, No Blood Throat/Mouth: Normal Voice, No Airway Compromise, Other (Dry mucous membranes) Head Exam: Atraumatic, Normocephalic Neck: Normal Inspection, Supple, Non-Tender, Full Range of Motion Respiratory/Chest: No Respiratory Distress, Lungs Clear, Normal Breath Sounds, No Accessory Muscle Use, Chest Non-Tender Cardiovascular: Normal Peripheral Pulses, Regular Rate, Rhythm, No Gallop, No Murmur GI/Abdominal: Normal Bowel Sounds, Soft, No Mass, Tender (Mild diffuse tenderness). No: Guarding, Rebound Neuro Exam (Abbreviated): Disoriented, Slow to Respond, Other (Seems to move his arms and legs symmetrically.) Back Exam: Normal Inspection Extremities: Normal Inspection, Normal Range of Motion, Non-Tender, No Pedal Edema, Normal Capillary Refill Psychiatric: Flat Affect Skin Exam: Warm, Dry, Intact, Normal Color, No Rash #1 Interpretation EKG Date: 05/07/21 Time: 19:24 Rhythm: Other (AV dual paced rhythm) Rate (Beats/Min): 70 Comparison: NA - No Prior EKG EKG Interpretation Comments: This is a paced rhythm. There are no previous EKGs for comparison. No other interpretations could be made. Course - Vital Signs Last Recorded V/S: Last Vital Signs Temp 36.2 C 05/08/21 01:34 Pulse 76 05/08/21 01:34 Resp 18 05/08/21 01:34 BP 132/68 05/08/21 01:34 Pulse Ox 98 05/08/21 01:34 - Orders/Labs/Meds Orders: Active Orders 24 hr Category Date Time Status EKG Documentation Completion [RC] ASDIRECTED Care 05/07/21 19:42 Active Insert Urinary Catheter [OM.PC] Q24H Care 05/07/21 20:45 Ordered Urinary Catheter Assessment [RC] QSHIFT Care 05/07/21 21:00 Active Abdomen Pelvis wo Cont [CT] Stat Exams 05/07/21 19:44 Taken Chest 1V Frontal [CR] Stat Exams 05/07/21 19:40 Taken Head wo Cont [CT] Stat Exams 05/07/21 19:44 Taken CULTURE BLOOD [BC] Urgent Lab 05/07/21 23:15 Received CULTURE BLOOD [BC] Urgent Lab 05/07/21 23:25 Received CULTURE URINE [RM] Stat Lab 05/07/21 20:50 Received Sodium Chloride 0.9% [Normal Saline] 1,000 ml Med 05/07/21 19:45 Active IV ASDIRECTED Blood Culture x2 Reflex Set [OM.PC] Urgent Oth 05/07/21 23:05 Ordered EKG 12 Lead [EK] Routine Ther 05/07/21 19:40 Ordered Medication Orders Acetaminophen (Acetaminophen 325 Mg Tab) 650 mg PO Q4H PRN PRN Reason: Pain (Mild 1-3)/fever Ceftriaxone Sodium (Ceftriaxone 1 Gm Vial) 1 gm IVPUSH Q24H MARIA ESTHER Dextrose/Water (50% Dextrose In Water 50 Ml Syringe) 50 ml IVPUSH ASDIRECTED PRN PRN Reason: Hypoglycemia Glucagon (Glucagon,Human Recombinant 1 Mg Vial) 1 mg IM ASDIRECTED PRN PRN Reason: Hypoglycemia Sodium Chloride (Normal Saline) 1,000 mls @ 150 mls/hr IV ASDIRECTED MARIA ESTHER Last Admin: 05/07/21 21:20 Dose: 150 mls/hr Documented by: ANGELES Magnesium Sulfate 2 gm/ Premix 50 mls @ 12.5 mls/hr IV ONETIME ONE Stop: 05/08/21 03:22 Last Admin: 05/07/21 23:49 Dose: 12.5 mls/hr Documented by: ANGELES Insulin Human Lispro (Insulin Lispro 100 Unit/Ml 3 Ml Kwikpen) 0 unit SUBCUT [facility]; Protocol Ondansetron HCl (Ondansetron 4 Mg/2 Ml Sdv) 4 mg IV Q6H PRN PRN Reason: Nausea/Vomiting Labs: Laboratory Tests 05/07/21 05/07/21 05/07/21 Range/Units 19:50 19:50 19:50 WBC 6.0 (3.2-10.1) x10-3/uL RBC 4.79 (3.90-5.90) x10(6)uL Hgb 13.2 (12.9-17.7) g/dL Hct 40.8 (38.3-50.1) % MCV 85.2 (80.8-98.7) fL MCH 27.5 (27.0-33.3) pg MCHC 32.3 (28.7-35.3) g/dL RDW 14.5 (12.4-15.0) % Plt Count 240 (117-477) x10(3)uL MPV 7.4 (6.7-11.0) fL Neut % (Auto) 48.2 (40.3-71.8) % Lymph % (Auto) 40.6 (15.8-45.3) % Gaines % (Auto) 8.3 (5.5-15.2) % Eos % (Auto) 2.2 (0.1-6.8) % Baso % (Auto) 0.7 (0.3-3.8) % Neut # (Auto) 2.9 (1.7-6.9) x10-3/uL Lymph # (Auto) 2.4 (0.5-4.5) x10-3/uL Gaines # (Auto) 0.5 (0.0-1.2) x10-3/uL Eos # (Auto) 0.1 (0.0-0.6) x10-3/uL Baso # (Auto) 0.0 (0.0-0.3) x10-3/uL Sodium 140 (135-145) mmol/L Potassium 4.6 (3.5-5.3) mmol/L Chloride 104 D (100-110) mmol/L Carbon Dioxide 28 (21-32) mmol/L BUN 17 (7-18) mg/dL Creatinine 1.3 (0.70-1.30) mg/dL Est Cr Clr Drug Dosing TNP Estimated GFR (MDRD) 52 L (>60) BUN/Creatinine Ratio 13.1 (9-20) Glucose 261 H (80-116) mg/dL Lactic Acid (0.4-2.0) mmol/L Calcium 8.0 L (8.6-10.2) mg/dL Magnesium 1.5 L (1.8-2.5) mg/dL Total Bilirubin 0.3 (0.1-1.3) mg/dL AST 12 D (5-25) IU/L ALT 19 (12-36) U/L Alkaline Phosphatase 69 (56-112) IU/L Troponin I 10.8 (4.0-60.3) pg/mL Total Protein 6.7 (6.0-8.0) g/dL Albumin 3.0 (2.9-4.5) g/dL Globulin 3.7 g/dL Albumin/Globulin Ratio 0.8 Urine Color (YELLOW) Urine Appearance (CLEAR) Urine pH (5.0-6.5) Ur Specific [place] (1.010-1.025) Urine Protein (NEGATIVE) mg/dL Urine Glucose (UA) (NORMAL) mg/dL Urine Ketones (NEGATIVE) mg/dL Urine Occult Blood (NEGATIVE) Urine Nitrite (NEGATIVE) Urine Bilirubin (NEGATIVE) Urine Urobilinogen (NEGATIVE) mg/dL Ur Leukocyte Esterase (NEGATIVE) U Hyaline Cast (Auto) (NS) Urine RBC (0-5) Urine WBC (0-5) Ur Squamous Epith Cells (NS,R,O) Urine Bacteria (NS) 05/07/21 05/07/21 Range/Units 19:50 20:50 WBC (3.2-10.1) x10-3/uL RBC (3.90-5.90) x10(6)uL Hgb (12.9-17.7) g/dL Hct (38.3-50.1) % MCV (80.8-98.7) fL MCH (27.0-33.3) pg MCHC (28.7-35.3) g/dL RDW (12.4-15.0) % Plt Count (117-477) x10(3)uL MPV (6.7-11.0) fL Neut % (Auto) (40.3-71.8) % Lymph % (Auto) (15.8-45.3) % Gaines % (Auto) (5.5-15.2) % Eos % (Auto) (0.1-6.8) % Baso % (Auto) (0.3-3.8) % Neut # (Auto) (1.7-6.9) x10-3/uL Lymph # (Auto) (0.5-4.5) x10-3/uL Gaines # (Auto) (0.0-1.2) x10-3/uL Eos # (Auto) (0.0-0.6) x10-3/uL Baso # (Auto) (0.0-0.3) x10-3/uL Sodium (135-145) mmol/L Potassium (3.5-5.3) mmol/L Chloride (100-110) mmol/L Carbon Dioxide (21-32) mmol/L BUN (7-18) mg/dL Creatinine (0.70-1.30) mg/dL Est Cr Clr Drug Dosing Estimated GFR (MDRD) (>60) BUN/Creatinine Ratio (9-20) Glucose (80-116) mg/dL Lactic Acid 1.9 (0.4-2.0) mmol/L Calcium (8.6-10.2) mg/dL Magnesium (1.8-2.5) mg/dL Total Bilirubin (0.1-1.3) mg/dL AST (5-25) IU/L ALT (12-36) U/L Alkaline Phosphatase (56-112) IU/L Troponin I (4.0-60.3) pg/mL Total Protein (6.0-8.0) g/dL Albumin (2.9-4.5) g/dL Globulin g/dL Albumin/Globulin Ratio Urine Color Red (YELLOW) Urine Appearance Slightly cloudy (CLEAR) Urine pH 5.0 (5.0-6.5) Ur Specific [place] 1.025 (1.010-1.025) Urine Protein 30 H (NEGATIVE) mg/dL Urine Glucose (UA) 100 H (NORMAL) mg/dL Urine Ketones 15 H (NEGATIVE) mg/dL Urine Occult Blood Large H (NEGATIVE) Urine Nitrite Negative (NEGATIVE) Urine Bilirubin Small H (NEGATIVE) Urine Urobilinogen 1 H (NEGATIVE) mg/dL Ur Leukocyte Esterase Moderate H (NEGATIVE) U Hyaline Cast (Auto) Rare H (NS) Urine RBC >100 H (0-5) Urine WBC 10-20 H (0-5) Ur Squamous Epith Cells Few H (NS,R,O) Urine Bacteria Moderate H (NS) Meds: Medications Generic Name Dose Route Start Last Admin Trade Name Freq PRN Reason Stop Dose Admin Acetaminophen 650 mg 05/07/21 23:19 Acetaminophen 325 Mg Tab PO Q4H PRN Pain (Mild 1-3)/fever Ceftriaxone Sodium 1 gm 05/08/21 21:00 Ceftriaxone 1 Gm Vial IVPUSH Q24H [facility] Dextrose/Water 50 ml 05/07/21 23:27 50% Dextrose In Water 50 Ml Syringe IVPUSH ASDIRECTED PRN Hypoglycemia Glucagon 1 mg 05/07/21 23:27 Glucagon,Human Recombinant 1 Mg Vial IM ASDIRECTED PRN Hypoglycemia Sodium Chloride 1,000 mls @ 150 mls/hr 05/07/21 19:45 05/07/21 21:20 Normal Saline IV 150 mls/hr ASDIRECTED MARIA ESTHER Administration Magnesium Sulfate 2 gm/ Premix 50 mls @ 12.5 mls/hr 05/07/21 23:23 05/07/21 23:49 IV 05/08/21 03:22 12.5 mls/hr ONETIME ONE Administration Insulin Human Lispro 0 unit 05/08/21 08:00 Insulin Lispro 100 Unit/Ml 3 Ml Kwikpen [facility]BC[facility] Protocol Ondansetron HCl 4 mg 05/07/21 23:19 Ondansetron 4 Mg/2 Ml Sdv IV Q6H PRN Nausea/Vomiting Discontinued Medications Generic Name Dose Route Start Last Admin Trade Name Freq PRN Reason Stop Dose Admin Ceftriaxone Sodium 1 gm 05/07/21 23:30 05/07/21 23:49 Ceftriaxone 1 Gm Vial IVPUSH 05/07/21 23:31 1 gm NOW ONE Administration Sodium Chloride 500 mls @ 999 mls/hr 05/07/21 19:42 05/07/21 20:45 Normal Saline IV 05/07/21 20:12 999 mls/hr .BOLUS ONE Administration Sodium Chloride 500 mls @ 999 mls/hr 05/07/21 21:25 05/07/21 23:45 Normal Saline IV 05/07/21 21:55 Not Given .BOLUS ONE Insulin Human Lispro 0 unit 05/07/21 23:45 05/08/21 01:18 Insulin Lispro 100 Unit/Ml 3 Ml Kwikpen SUBCUT 05/07/21 23:46 2 units NOW ONE Administration Protocol - Radiology Interpretation Free Text/Narrative:: Portable chest x-ray showed no acute abnormality. CT scan of the head showed no evidence of acute infarction, intracranial hemorrhage or mass effect seen per the [facility] radiologist. CT scan of the abdomen and pelvis without IV contrast showed moderate diffuse bladder wall thickening that could be related to a urinary tract infection, bladder I'll of obstruction or cystitis. There is also moderate enlargement of the prostate gland. There is a fracture deformity of the left superior pubic ramus the patient apparently had in the past. There is also a severe compression deformity along this. In plate of L2 with retropulsion of posterior superior endplate causing moderate central canal stenosis. There is also focal calcification of the pericardium near the cardiac apex. This was all per the [facility] radiologist. - Re-Assessments/Exams Free Text/Narrative Re-Assessment/Exam: 05/07/21 22:40: The patient's blood pressure has improved to the 110-120 range. His temperature has remained normal. His O2 saturations have remained normal. His white blood cell count was normal. His hemoglobin was normal. His platelet count was normal. His serum electrolyte profile was normal but his glucose was elevated at 261. His lactic acid was normal. His magnesium was a little low at 1.5. His urinalysis did have greater than 100 red blood cells per high-powered field but it was a somewhat traumatic catheterization nurse. There were also 10- 20 white blood cells per high-powered field and moderate bacteria. This was sent for culture. The patient remains disoriented but is more awake and responsive. He also follows commands appropriately. He appears in no distress. The chest x- ray was normal. The CT scan of his head showed no acute abnormality. Of his abdomen and pelvis did show wall thickening that is correlated with his UA evidence of a urinary tract infection. I did call and discuss all of this with Charley, the patient's daughter who is also the power of civil rights attorney, and I have recommended that we admit the patient to the hospital as an observation for now. That we monitored him on the pvc monitor and that we give him IV fluid hydration with IV antibiotics as urinary tract infection. This is what Charley would want and is in favor of admission for her father. I did confirm with her that he is a DNR/DNI. We will administer IV fluid hydration. I will also order magnesium replacement. I will also order IV antibiotics with Rocephin 1 g IV every 24 hours. Care of the patient will go to Dr. Haskins at 7 AM on 05/08/2021. Departure - Departure Time of Disposition: 23:08 Disposition: Refer to Observation Condition: Fair Clinical Impression: Syncope and collapse, Dehydration, Transient hypotension UTI (urinary tract infection) Qualifiers: Urinary tract infection type: site unspecified Hematuria presence: with hematuria Qualified Code(s): N39.0 - Urinary tract infection, site not specified - Discharge Information Sepsis Event Note (ED) - Focused Exam Vital Signs: Vital Signs Temp Pulse Resp BP Pulse Ox 05/07/21 19:30 36.3 C 66 16 105/53 L 95 - My Orders Last 24 Hours: My Active Orders 05/07/21 19:40 Chest 1V Frontal [CR] Stat EKG 12 Lead [EK] Routine 05/07/21 19:42 EKG Documentation Completion [RC] ASDIRECTED 05/07/21 19:44 Abdomen Pelvis wo Cont [CT] Stat Head wo Cont [CT] Stat 05/07/21 19:45 Sodium Chloride 0.9% [Normal Saline] 1,000 ml IV ASDIRECTED 05/07/21 20:45 Insert Urinary Catheter [OM.PC] Q24H 05/07/21 20:50 CULTURE URINE [RM] Stat 05/07/21 21:00 Urinary Catheter Assessment [RC] QSHIFT 05/07/21 23:05 Blood Culture x2 Reflex Set [OM.PC] Urgent 05/07/21 23:15 CULTURE BLOOD [BC] Urgent 05/07/21 23:25 CULTURE BLOOD [BC] Urgent - Assessment/Plan Last 24 Hours: My Active Orders 05/07/21 19:40 Chest 1V Frontal [CR] Stat EKG 12 Lead [EK] Routine 05/07/21 19:42 EKG Documentation Completion [RC] ASDIRECTED 05/07/21 19:44 Abdomen Pelvis wo Cont [CT] Stat Head wo Cont [CT] Stat 05/07/21 19:45 Sodium Chloride 0.9% [Normal Saline] 1,000 ml IV ASDIRECTED 05/07/21 20:45 Insert Urinary Catheter [OM.PC] Q24H 05/07/21 20:50 CULTURE URINE [RM] Stat 05/07/21 21:00 Urinary Catheter Assessment [RC] QSHIFT 05/07/21 23:05 Blood Culture x2 Reflex Set [OM.PC] Urgent 05/07/21 23:15 CULTURE BLOOD [BC] Urgent 05/07/21 23:25 CULTURE BLOOD [BC] Urgent
[2021-05-07] MEDS ORDERED: Sodium Chloride 0.9% 500 ML IV ONE ×2 (19:42→21:25)
[2021-05-07] MEDS: Sodium Chloride 0.9% 1,000 ML IV SCH (21:20)
[2021-05-07] MEDS ORDERED: Acetaminophen 325 MG Tab PO PRN (23:19)
[2021-05-07] MEDS ORDERED: Ondansetron 4 MG/2 ML SDV IV PRN (23:19)
[2021-05-07] MEDS ORDERED: Magnesium Sulfate/Water 2 GM in Premix Bag 1 BAG IV ONE (23:23)
[2021-05-07] MEDS ORDERED: Glucagon,Human Recombinant 1 MG Vial IM PRN (23:27)
[2021-05-07] MEDS ORDERED: 50% Dextrose in Water 50 ML Syringe IVPUSH PRN (23:27)
[2021-05-07] MEDS ORDERED: cefTRIAXone 1 GM Vial IVPUSH ONE (23:30)
[2021-05-07] MEDS ORDERED: Insulin Lispro 100 Unit/ML 3 ML KwikPen SUBCUT ONE (23:45)
[2021-05-08] MEDS: Sodium Chloride 0.9% 1,000 ML IV SCH ×2 (04:42→12:17)
--- NOTE | 2021-05-08 08:20 | PCM.HP.2 ---
H&P History of Present Illness - General Date of Service: 05/08/21 Admit Problem/Dx: Admission Diagnosis/Problem Admission Diagnosis/Problem Syncope and collapse Source of Information: Old Records History Limitations: Reports: Other (Dementia) - History of Present Illness Initial Comments - Free Text/Narative: This is an 89-year-old male patient with essential. He can answer questions but doesn't even know why he is here. I had to refer to the old records of the ER note for his history. He is unable to give a history today. According to the note he is lethargic syncopal. Brought to the ER by ambulance and found to have a UTI and some dehydration and weakness. He was admitted for observation. - Related Data Allergies/Adverse Reactions: Allergies Allergy/AdvReac Type Severity Reaction Status Date / Time No Known Allergies Allergy Verified 05/07/21 22:40 Home Medications: Home Meds FLUoxetine HCl [Fluoxetine HCl] 20 mg PO DAILY@1200 10/20/20 [History] QUEtiapine [SEROquel] 50 mg PO BEDTIME 10/20/20 [History] glipiZIDE [Glucotrol] 10 mg PO BID@12,18 10/20/20 [History] Acetaminophen [Acetaminophen ER] 650 mg PO BID 05/08/21 [History] Aspirin [Halfprin] 81 mg PO DAILY 05/08/21 [History] Donepezil HCl 5 mg PO BEDTIME 05/08/21 [History] Nystatin 1 applic TOP BID PRN 05/08/21 [History] carvediloL [Carvedilol] 3.125 mg PO BID 05/08/21 [History] metFORMIN HCl [Metformin HCl] 500 mg PO BID 05/08/21 [History] Past Medical History Cardiovascular History: Reports: CAD, High Cholesterol, Hypertension, MS, Pacemaker Neurological History: Reports: Other (See Below) Other Neuro History: Unspecified dementia without behavioral disturbance. Psychiatric History: Reports: Dementia, Other (See Below) Other Psychiatric History: delusional disorders. Endocrine/Metabolic History: Reports: Diabetes, Type II - Infectious Disease History Infectious Disease History: Reports: Measles, Mumps - Past Surgical History Head Surgeries/Procedures: Reports: None HEENT Surgical History: Reports: Tonsillectomy Cardiovascular Surgical History: Reports: Pacer Musculoskeletal Surgical History: Reports: Shoulder Replacement Other Musculoskeletal Surgeries/Procedures:: R shoulder Social & Family History - Family History Family Medical History: No Pertinent Family History - Tobacco Use Tobacco Use Status *Q: Unknown Ever Used Tobacco Second Hand Smoke Exposure: No - Caffeine Use Caffeine Use: Reports: Coffee - Recreational Drug Use Recreational Drug Use: No - Living Situation & Occupation Living situation: Reports: Assisted Living ([facility]) Occupation: Retired H&P Review of Systems - Review of Systems: Review Of Systems: See Below Free Text/Narrative: She denied the review systems. Not sure if it's reliable because of his dementia. General: Reports: No Symptoms HEENT: Reports: No Symptoms Pulmonary: Reports: No Symptoms Cardiovascular: Reports: No Symptoms Gastrointestinal: Reports: No Symptoms Genitourinary: Reports: No Symptoms Musculoskeletal: Reports: No Symptoms Skin: Reports: No Symptoms Psychiatric: Reports: No Symptoms Neurological: Reports: No Symptoms Hematologic/Lymphatic: Reports: No Symptoms Immunologic: Reports: No Symptoms Exam - Exam Exam: See Below - Vital Signs Vital Signs: Last Vital Signs Temp 97.8 F 05/08/21 04:26 Pulse 74 05/08/21 04:26 Resp 18 05/08/21 04:26 BP 130/68 05/08/21 04:26 Pulse Ox 97 05/08/21 04:26 Weight: 180 lb - Exam General: Alert, Cooperative. No: Oriented HEENT: Hearing Intact, Posterior Pharynx Clear, TMs Clear Neck: Supple, Trachea Midline Lungs: Clear to Auscultation, Normal Respiratory Effort Cardiovascular: Regular Rate, Regular Rhythm. No: Systolic Murmur GI/Abdominal Exam: Normal Bowel Sounds, Soft, Non-Tender, No Distention Extremities: No Pedal Edema - Patient Data Lab Results Last 24 hrs: Laboratory Results - last 24 hr 05/07/21 05/07/21 05/07/21 Range/Units 19:50 19:50 19:50 WBC 6.0 (3.2-10.1) x10-3/uL RBC 4.79 (3.90-5.90) x10(6)uL Hgb 13.2 (12.9-17.7) g/dL Hct 40.8 (38.3-50.1) % MCV 85.2 (80.8-98.7) fL MCH 27.5 (27.0-33.3) pg MCHC 32.3 (28.7-35.3) g/dL RDW 14.5 (12.4-15.0) % Plt Count 240 (117-477) x10(3)uL MPV 7.4 (6.7-11.0) fL Neut % (Auto) 48.2 (40.3-71.8) % Lymph % (Auto) 40.6 (15.8-45.3) % Lawrence % (Auto) 8.3 (5.5-15.2) % Eos % (Auto) 2.2 (0.1-6.8) % Baso % (Auto) 0.7 (0.3-3.8) % Neut # (Auto) 2.9 (1.7-6.9) x10-3/uL Lymph # (Auto) 2.4 (0.5-4.5) x10-3/uL Lawrence # (Auto) 0.5 (0.0-1.2) x10-3/uL Eos # (Auto) 0.1 (0.0-0.6) x10-3/uL Baso # (Auto) 0.0 (0.0-0.3) x10-3/uL Sodium 140 (135-145) mmol/L Potassium 4.6 (3.5-5.3) mmol/L Chloride 104 D (100-110) mmol/L Carbon Dioxide 28 (21-32) mmol/L BUN 17 (7-18) mg/dL Creatinine 1.3 (0.70-1.30) mg/dL Est Cr Clr Drug Dosing TNP Estimated GFR (MDRD) 52 L (>60) BUN/Creatinine Ratio 13.1 (9-20) Glucose 261 H (80-116) mg/dL POC Glucose (80-116) mg/dL Lactic Acid (0.4-2.0) mmol/L Calcium 8.0 L (8.6-10.2) mg/dL Magnesium 1.5 L (1.8-2.5) mg/dL Total Bilirubin 0.3 (0.1-1.3) mg/dL AST 12 D (5-25) IU/L ALT 19 (12-36) U/L Alkaline Phosphatase 69 (56-112) IU/L Troponin I 10.8 (4.0-60.3) pg/mL Total Protein 6.7 (6.0-8.0) g/dL Albumin 3.0 (2.9-4.5) g/dL Globulin 3.7 g/dL Albumin/Globulin Ratio 0.8 Urine Color (YELLOW) Urine Appearance (CLEAR) Urine pH (5.0-6.5) Ur Specific [place] (1.010-1.025) Urine Protein (NEGATIVE) mg/dL Urine Glucose (UA) (NORMAL) mg/dL Urine Ketones (NEGATIVE) mg/dL Urine Occult Blood (NEGATIVE) Urine Nitrite (NEGATIVE) Urine Bilirubin (NEGATIVE) Urine Urobilinogen (NEGATIVE) mg/dL Ur Leukocyte Esterase (NEGATIVE) U Hyaline Cast (Auto) (NS) Urine RBC (0-5) Urine WBC (0-5) Ur Squamous Epith Cells (NS,R,O) Urine Bacteria (NS) SARS-CoV-2 RNA (EVELYNE) (NEGATIVE) 05/07/21 05/07/21 05/07/21 Range/Units 19:50 20:50 23:15 WBC (3.2-10.1) x10-3/uL RBC (3.90-5.90) x10(6)uL Hgb (12.9-17.7) g/dL Hct (38.3-50.1) % MCV (80.8-98.7) fL MCH (27.0-33.3) pg MCHC (28.7-35.3) g/dL RDW (12.4-15.0) % Plt Count (117-477) x10(3)uL MPV (6.7-11.0) fL Neut % (Auto) (40.3-71.8) % Lymph % (Auto) (15.8-45.3) % Lawrence % (Auto) (5.5-15.2) % Eos % (Auto) (0.1-6.8) % Baso % (Auto) (0.3-3.8) % Neut # (Auto) (1.7-6.9) x10-3/uL Lymph # (Auto) (0.5-4.5) x10-3/uL Lawrence # (Auto) (0.0-1.2) x10-3/uL Eos # (Auto) (0.0-0.6) x10-3/uL Baso # (Auto) (0.0-0.3) x10-3/uL Sodium (135-145) mmol/L Potassium (3.5-5.3) mmol/L Chloride (100-110) mmol/L Carbon Dioxide (21-32) mmol/L BUN (7-18) mg/dL Creatinine (0.70-1.30) mg/dL Est Cr Clr Drug Dosing Estimated GFR (MDRD) (>60) BUN/Creatinine Ratio (9-20) Glucose (80-116) mg/dL POC Glucose (80-116) mg/dL Lactic Acid 1.9 (0.4-2.0) mmol/L Calcium (8.6-10.2) mg/dL Magnesium (1.8-2.5) mg/dL Total Bilirubin (0.1-1.3) mg/dL AST (5-25) IU/L ALT (12-36) U/L Alkaline Phosphatase (56-112) IU/L Troponin I (4.0-60.3) pg/mL Total Protein (6.0-8.0) g/dL Albumin (2.9-4.5) g/dL Globulin g/dL Albumin/Globulin Ratio Urine Color Red (YELLOW) Urine Appearance Slightly cloudy (CLEAR) Urine pH 5.0 (5.0-6.5) Ur Specific [place] 1.025 (1.010-1.025) Urine Protein 30 H (NEGATIVE) mg/dL Urine Glucose (UA) 100 H (NORMAL) mg/dL Urine Ketones 15 H (NEGATIVE) mg/dL Urine Occult Blood Large H (NEGATIVE) Urine Nitrite Negative (NEGATIVE) Urine Bilirubin Small H (NEGATIVE) Urine Urobilinogen 1 H (NEGATIVE) mg/dL Ur Leukocyte Esterase Moderate H (NEGATIVE) U Hyaline Cast (Auto) Rare H (NS) Urine RBC >100 H (0-5) Urine WBC 10-20 H (0-5) Ur Squamous Epith Cells Few H (NS,R,O) Urine Bacteria Moderate H (NS) SARS-CoV-2 RNA (EVELYNE) Negative (NEGATIVE) 05/08/21 05/08/21 05/08/21 Range/Units 01:12 05:51 06:30 WBC 6.1 (3.2-10.1) x10-3/uL RBC 4.27 (3.90-5.90) x10(6)uL Hgb 11.7 L (12.9-17.7) g/dL Hct 36.2 L (38.3-50.1) % MCV 84.7 (80.8-98.7) fL MCH 27.4 (27.0-33.3) pg MCHC 32.3 (28.7-35.3) g/dL RDW 14.8 (12.4-15.0) % Plt Count 215 (117-477) x10(3)uL MPV 7.0 (6.7-11.0) fL Neut % (Auto) 40.5 (40.3-71.8) % Lymph % (Auto) 47.8 H (15.8-45.3) % Lawrence % (Auto) 8.6 (5.5-15.2) % Eos % (Auto) 2.4 (0.1-6.8) % Baso % (Auto) 0.7 (0.3-3.8) % Neut # (Auto) 2.5 (1.7-6.9) x10-3/uL Lymph # (Auto) 2.9 (0.5-4.5) x10-3/uL Lawrence # (Auto) 0.5 (0.0-1.2) x10-3/uL Eos # (Auto) 0.1 (0.0-0.6) x10-3/uL Baso # (Auto) 0.0 (0.0-0.3) x10-3/uL Sodium (135-145) mmol/L Potassium (3.5-5.3) mmol/L Chloride (100-110) mmol/L Carbon Dioxide (21-32) mmol/L BUN (7-18) mg/dL Creatinine (0.70-1.30) mg/dL Est Cr Clr Drug Dosing Estimated GFR (MDRD) (>60) BUN/Creatinine Ratio (9-20) Glucose (80-116) mg/dL POC Glucose 191 H 205 H (80-116) mg/dL Lactic Acid (0.4-2.0) mmol/L Calcium (8.6-10.2) mg/dL Magnesium (1.8-2.5) mg/dL Total Bilirubin (0.1-1.3) mg/dL AST (5-25) IU/L ALT (12-36) U/L Alkaline Phosphatase (56-112) IU/L Troponin I (4.0-60.3) pg/mL Total Protein (6.0-8.0) g/dL Albumin (2.9-4.5) g/dL Globulin g/dL Albumin/Globulin Ratio Urine Color (YELLOW) Urine Appearance (CLEAR) Urine pH (5.0-6.5) Ur Specific [place] (1.010-1.025) Urine Protein (NEGATIVE) mg/dL Urine Glucose (UA) (NORMAL) mg/dL Urine Ketones (NEGATIVE) mg/dL Urine Occult Blood (NEGATIVE) Urine Nitrite (NEGATIVE) Urine Bilirubin (NEGATIVE) Urine Urobilinogen (NEGATIVE) mg/dL Ur Leukocyte Esterase (NEGATIVE) U Hyaline Cast (Auto) (NS) Urine RBC (0-5) Urine WBC (0-5) Ur Squamous Epith Cells (NS,R,O) Urine Bacteria (NS) SARS-CoV-2 RNA (EVELYNE) (NEGATIVE) 05/08/21 Range/Units 06:30 WBC (3.2-10.1) x10-3/uL RBC (3.90-5.90) x10(6)uL Hgb (12.9-17.7) g/dL Hct (38.3-50.1) % MCV (80.8-98.7) fL MCH (27.0-33.3) pg MCHC (28.7-35.3) g/dL RDW (12.4-15.0) % Plt Count (117-477) x10(3)uL MPV (6.7-11.0) fL Neut % (Auto) (40.3-71.8) % Lymph % (Auto) (15.8-45.3) % Lawrence % (Auto) (5.5-15.2) % Eos % (Auto) (0.1-6.8) % Baso % (Auto) (0.3-3.8) % Neut # (Auto) (1.7-6.9) x10-3/uL Lymph # (Auto) (0.5-4.5) x10-3/uL Lawrence # (Auto) (0.0-1.2) x10-3/uL Eos # (Auto) (0.0-0.6) x10-3/uL Baso # (Auto) (0.0-0.3) x10-3/uL Sodium 141 (135-145) mmol/L Potassium 4.0 (3.5-5.3) mmol/L Chloride 107 (100-110) mmol/L Carbon Dioxide 28 (21-32) mmol/L BUN 14 (7-18) mg/dL Creatinine 1.1 (0.70-1.30) mg/dL Est Cr Clr Drug Dosing 48.49 Estimated GFR (MDRD) > 60 (>60) BUN/Creatinine Ratio 12.7 (9-20) Glucose 189 H (80-116) mg/dL POC Glucose (80-116) mg/dL Lactic Acid (0.4-2.0) mmol/L Calcium 7.4 L (8.6-10.2) mg/dL Magnesium 1.9 (1.8-2.5) mg/dL Total Bilirubin (0.1-1.3) mg/dL AST (5-25) IU/L ALT (12-36) U/L Alkaline Phosphatase (56-112) IU/L Troponin I (4.0-60.3) pg/mL Total Protein (6.0-8.0) g/dL Albumin (2.9-4.5) g/dL Globulin g/dL Albumin/Globulin Ratio Urine Color (YELLOW) Urine Appearance (CLEAR) Urine pH (5.0-6.5) Ur Specific [place] (1.010-1.025) Urine Protein (NEGATIVE) mg/dL Urine Glucose (UA) (NORMAL) mg/dL Urine Ketones (NEGATIVE) mg/dL Urine Occult Blood (NEGATIVE) Urine Nitrite (NEGATIVE) Urine Bilirubin (NEGATIVE) Urine Urobilinogen (NEGATIVE) mg/dL Ur Leukocyte Esterase (NEGATIVE) U Hyaline Cast (Auto) (NS) Urine RBC (0-5) Urine WBC (0-5) Ur Squamous Epith Cells (NS,R,O) Urine Bacteria (NS) SARS-CoV-2 RNA (EVELYNE) (NEGATIVE) Result Diagrams: 05/08/21 06:30 05/08/21 06:30 Sepsis Event Note - Evaluation Sepsis Screening Result: No Definite Risk - Focused Exam Vital Signs: Vital Signs Temp Pulse Resp BP Pulse Ox 06/07/21 04:26 97.8 F 74 18 130/68 97 05/08/21 03:08 97.4 F 74 18 128/64 97 05/08/21 01:34 97.2 F 76 18 132/68 98 - Problem List (1) Palliative care status SNOMED Code(s): 592192529 ICD Code: Z51.5 - ENCOUNTER FOR PALLIATIVE CARE Status: Acute Current Visit: Yes (2) Dehydration SNOMED Code(s): 71478534 ICD Code: E86.0 - DEHYDRATION Status: Acute Current Visit: Yes (3) Syncope and collapse SNOMED Code(s): 968716961 ICD Code: R55 - SYNCOPE AND COLLAPSE Status: Acute Current Visit: Yes (4) UTI (urinary tract infection) SNOMED Code(s): 40295660 ICD Code: N39.0 - URINARY TRACT INFECTION, SITE NOT SPECIFIED Status: Acute Current Visit: Yes Qualifiers: Urinary tract infection type: site unspecified Hematuria presence: with hematuria Qualified Code(s): N39.0 - Urinary tract infection, site not specified; R31.9 - Hematuria, unspecified (5) Dementia SNOMED Code(s): 60537226 ICD Code: F03.90 - UNSPECIFIED DEMENTIA WITHOUT BEHAVIORAL DISTURBANCE Status: Chronic Current Visit: No (6) Diabetes SNOMED Code(s): 85701613 ICD Code: E11.9 - TYPE 2 DIABETES MELLITUS WITHOUT COMPLICATIONS Status: Chronic Current Visit: No Problem List Initiated/Reviewed/Updated: Yes Orders Last 24hrs: Active Orders 24 hr Category Date Time Status Admission Status [Patient Status] [ADT] Routine ADT 05/07/21 23:07 Active Blood Glucose Check, Bedside [RC] QIDACANDBED Care 05/07/21 23:19 Active EKG Documentation Completion [RC] ASDIRECTED Care 05/07/21 19:42 Active Height and Weight [RC] DAILY Care 05/07/21 23:19 Active Insert Urinary Catheter [OM.PC] Q24H Care 05/07/21 20:45 Ordered Intake and Output [RC] QSHIFT Care 05/07/21 23:20 Active Oxygen Therapy [RC] PRN Care 05/07/21 23:19 Active Up With Assistance [RC] ASDIRECTED Care 05/07/21 23:19 Active Urinary Catheter Assessment [RC] QSHIFT Care 05/07/21 21:00 Active VTE/DVT Education [RC] Per Unit Routine Care 05/07/21 23:19 Active Vital Signs [RC] QSHIFT Care 05/07/21 23:19 Active Consistent Carbohydrate Diet [DIET] Diet 05/07/21 Dinner Ordered Abdomen Pelvis wo Cont [CT] Stat Exams 05/07/21 19:44 Taken Chest 1V Frontal [CR] Stat Exams 05/07/21 19:40 Taken Head wo Cont [CT] Stat Exams 05/07/21 19:44 Taken CULTURE BLOOD [BC] Urgent Lab 05/07/21 23:15 Received CULTURE BLOOD [BC] Urgent Lab 05/07/21 23:25 Received CULTURE URINE [RM] Stat Lab 05/07/21 20:50 Received Acetaminophen [TylenoL] Med 05/07/21 23:19 Active 650 mg PO Q4H PRN Acetaminophen [Tylenol Arthritis Pain] Med 05/08/21 09:00 Ordered 650 mg PO BID Aspirin [Halfprin] Med 05/08/21 09:00 Ordered 81 mg PO DAILY Dextrose 50% in Water Med 05/07/21 23:27 Active 50 ml IVPUSH ASDIRECTED PRN Donepezil [Aricept] Med 05/08/21 21:00 Ordered 5 mg PO BEDTIME Enoxaparin [Lovenox] Med 05/08/21 08:15 Ordered 30 mg SUBCUT Q24H FLUoxetine [PROzac] Med 05/08/21 12:00 Ordered 20 mg PO DAILY@1200 Glucagon,Human Recombinant [GlucaGen] Med 05/07/21 23:27 Active 1 mg IM ASDIRECTED PRN Insulin Lispro [HumaLOG] Med 05/08/21 08:00 Active See Protocol SUBCUT TIDMEALS Nystatin [Nystatin] Med 05/08/21 08:10 Ordered 1 applic TOP BID PRN Ondansetron [Zofran] Med 05/07/21 23:19 Active 4 mg IV Q6H PRN QUEtiapine [SEROquel] Med 05/08/21 21:00 Ordered 50 mg PO BEDTIME Sodium Chloride 0.9% [Normal Saline] 1,000 ml Med 05/07/21 19:45 Active IV ASDIRECTED carvediloL [Coreg] Med 05/08/21 09:00 Ordered 3.125 mg PO BID cefTRIAXone [Rocephin] Med 05/08/21 21:00 Active 1 gm IVPUSH Q24H metFORMIN [Glucophage] Med 05/08/21 09:00 Ordered 500 mg PO BID Blood Culture x2 Reflex Set [OM.PC] Urgent Oth 05/07/21 23:05 Ordered Resuscitation Status Routine Resus Stat 05/07/21 23:19 Ordered EKG 12 Lead [EK] Routine Ther 05/07/21 19:40 Stop Req Medication Orders Acetaminophen (Acetaminophen 325 Mg Tab) 650 mg PO Q4H PRN PRN Reason: Pain (Mild 1-3)/fever Acetaminophen (Acetaminophen 650 Mg Tab.Er) 650 mg PO BID [facility] Aspirin (Aspirin 81 Mg Tab.Ec) 81 mg PO DAILY [facility] Carvedilol (Carvedilol 3.125 Mg Tab) 3.125 mg PO BID [facility] Ceftriaxone Sodium (Ceftriaxone 1 Gm Vial) 1 gm IVPUSH Q24H [facility] Dextrose/Water (50% Dextrose In Water 50 Ml Syringe) 50 ml IVPUSH ASDIRECTED PRN PRN Reason: Hypoglycemia Donepezil HCl (Donepezil 5 Mg Tab) 5 mg PO BEDTIME [facility] Enoxaparin Sodium (Enoxaparin 30 Mg/0.3 Ml Syringe) 30 mg SUBCUT Q24H [facility] Fluoxetine HCl (Fluoxetine 20 Mg Cap) 20 mg PO DAILY@1200 [facility] Glucagon (Glucagon,Human Recombinant 1 Mg Vial) 1 mg IM ASDIRECTED PRN PRN Reason: Hypoglycemia Sodium Chloride (Normal Saline) 1,000 mls @ 100 mls/hr IV ASDIRECTED [facility] Last Admin: 05/08/21 04:42 Dose: 150 mls/hr Documented by: Infusion: 05/08/21 04:01 Dose: 150 mls/hr Documented by: Admin: 05/07/21 21:20 Dose: 150 mls/hr Documented by: ANGELES Insulin Human Lispro (Insulin Lispro 100 Unit/Ml 3 Ml Kwikpen) 0 unit SUBCUT TIDMEALS [facility]; Protocol Metformin HCl (Metformin 500 Mg Tab) 500 mg PO BID [facility] Non-Formulary Medication (Nystatin [Nystatin]) 1 applic TOP BID PRN PRN Reason: Rash Ondansetron HCl (Ondansetron 4 Mg/2 Ml Sdv) 4 mg IV Q6H PRN PRN Reason: Nausea/Vomiting Quetiapine Fumarate (Quetiapine 50 Mg Tab) 50 mg PO BEDTIME [facility]HER Assessment/Plan Comment:: 1. Admit to observation. 2. DNR/DNI. 3. Diabetic diet 4. Normal saline 5. Lovenox for clot prophylaxis. 6. Up with assist. 7. Sliding scale for his diabetes 8. Rocephin for the IV antibiotics for his UTI. 9. Wait for urine culture. - Mortality Measure Prognosis:: Good
[2021-05-08] MEDS: Insulin Lispro 100 Unit/ML 3 ML KwikPen SUBCUT SCH ×3 (08:45→18:53)
[2021-05-08] MEDS ORDERED: Nystatin Topical Powder 15 GM Bottle TOP PRN (10:04)
--- NOTE | 2021-05-08 11:15 | CR ---
INDICATION: Syncope. CHEST ONE VIEW: Portable AP upright view of the chest 05/07/21 was compared with 10/20/20. Bipolar pacemaker leads appear unchanged in position. The heart did not appear enlarged post median sternotomy with the aorta tortuous and calcified in the arch and descending portion. A definite active infiltrate or effusion was not identified. Overlying EKG leads are noted. IMPRESSION: No acute process. MTDD
[2021-05-08] MEDS: Enoxaparin 30 MG/0.3 ML Syringe SUBCUT SCH (11:43)
[2021-05-08] MEDS: Acetaminophen 650 MG Tab.ER *PTOM PO SCH ×2 (11:48→21:08)
[2021-05-08] MEDS: Carvedilol 3.125 MG Tab *PTOM PO SCH ×2 (11:51→18:54)
[2021-05-08] MEDS: metFORMIN 500 MG Tab *PTOM PO SCH ×2 (11:52→21:08)
[2021-05-08] MEDS: Aspirin 81 MG Tab.EC *PTOM PO SCH (11:53)
[2021-05-08] MEDS: FLUoxetine 20 MG Cap *PTOM PO SCH (11:53)
[2021-05-08] MEDS ORDERED: cefTRIAXone 1 GM Vial IVPUSH SCH (21:00)
[2021-05-08] MEDS ORDERED: QUEtiapine 50 MG Tab *PTOM PO SCH (21:00)
[2021-05-08] MEDS ORDERED: DONEPEZIL 5 MG PO SCH (21:00)
[2021-05-09] MEDS: Insulin Lispro 100 Unit/ML 3 ML KwikPen SUBCUT SCH ×2 (08:23→14:32)
--- NOTE | 2021-05-09 08:52 | PCM.PN ---
- General Info Date of Service: 05/09/21 Admission Dx/Problem (Free Text): Patient has no concerns. He is eating and drinking fine and is very alert. Denies chest pain, fevers, chills, dysuria, pyuria, hematuria. - Patient Data Vitals - Most Recent: Last Vital Signs Temp 97.5 F 05/09/21 00:00 Pulse 80 05/09/21 00:00 Resp 16 05/09/21 00:00 BP 117/70 05/09/21 00:00 Pulse Ox 95 05/09/21 00:00 Weight - Most Recent: 172 lb 3.2 oz I&O - Last 24 Hours: Intake & Output 05/08/21 05/09/21 05/09/21 22:59 06:59 14:59 Intake Total 2100 Balance 2100 Lab Results Last 24 Hours: Laboratory Results - last 24 hr 05/08/21 05/08/21 05/08/21 Range/Units 11:34 17:24 21:06 POC Glucose 140 H 194 H 218 H (80-116) mg/dL 05/09/21 Range/Units 06:08 POC Glucose 97 D (80-116) mg/dL James Results Last 24 Hours: Microbiology 05/07/21 20:50 Urine Culture - Preliminary Urine, Catheterized NO GROWTH AFTER 1 DAY 05/07/21 23:25 Aerobic Blood Culture - Preliminary Blood - Venous - Lab Draw NO GROWTH AFTER 1 DAY Anaerobic Blood Culture - Preliminary NO GROWTH AFTER 1 DAY 05/07/21 23:15 Aerobic Blood Culture - Preliminary Blood - Venous NO GROWTH AFTER 1 DAY Anaerobic Blood Culture - Preliminary NO GROWTH AFTER 1 DAY Med Orders - Current: Current Medications Acetaminophen (Acetaminophen 325 Mg Tab) 650 mg PO Q4H PRN PRN Reason: Pain (Mild 1-3)/fever Acetaminophen (Acetaminophen 650 Mg Tab.Er *Ptom) 650 mg PO BID@1200,2100 [facility] Last Admin: 05/08/21 21:08 Dose: 650 mg Documented by: Aspirin (Aspirin 81 Mg Tab.Ec *Ptom) 81 mg PO DAILY@1200 [facility] Last Admin: 05/08/21 11:53 Dose: 81 mg Documented by: Carvedilol (Carvedilol 3.125 Mg Tab *Ptom) 3.125 mg PO BID@1200,1800 [facility] Last Admin: 05/08/21 18:54 Dose: 3.125 mg Documented by: Ceftriaxone Sodium (Ceftriaxone 1 Gm Vial) 1 gm IVPUSH Q24H [facility] Last Admin: 05/08/21 21:09 Dose: 1 gm Documented by: Dextrose/Water (50% Dextrose In Water 50 Ml Syringe) 50 ml IVPUSH ASDIRECTED PRN PRN Reason: Hypoglycemia Donepezil HCl (Donepezil 5 Mg Tab *Ptom) 5 mg PO BEDTIME [facility] Last Admin: 05/08/21 21:07 Dose: 5 mg Documented by: Enoxaparin Sodium (Enoxaparin 30 Mg/0.3 Ml Syringe) 30 mg SUBCUT Q24H [facility] Last Admin: 05/08/21 11:43 Dose: 30 mg Documented by: Fluoxetine HCl (Fluoxetine 20 Mg Cap *Ptom) 20 mg PO DAILY@1200 [facility] Last Admin: 05/08/21 11:53 Dose: 20 mg Documented by: Glucagon (Glucagon,Human Recombinant 1 Mg Vial) 1 mg IM ASDIRECTED PRN PRN Reason: Hypoglycemia Sodium Chloride (Normal Saline) 1,000 mls @ 100 mls/hr IV ASDIRECTED [facility] Last Admin: 05/08/21 12:17 Dose: 150 mls/hr Documented by: Insulin Human Lispro (Insulin Lispro 100 Unit/Ml 3 Ml Kwikpen) 0 unit SUBCUT TIDMEALS [facility]; Protocol Last Admin: 05/09/21 08:23 Dose: Not Given Documented by: Metformin HCl (Metformin 500 Mg Tab *Ptom) 500 mg PO BID@1200,2100 [facility] Last Admin: 05/08/21 21:08 Dose: 500 mg Documented by: Nystatin (Nystatin Topical Powder 15 Gm Bottle) 1 gm TOP BID PRN PRN Reason: Rash Ondansetron HCl (Ondansetron 4 Mg/2 Ml Sdv) 4 mg IV Q6H PRN PRN Reason: Nausea/Vomiting Quetiapine Fumarate (Quetiapine 50 Mg Tab *Ptom) 50 mg PO BEDTIME [facility] Last Admin: 05/08/21 21:08 Dose: 50 mg Documented by: Discontinued Medications Ceftriaxone Sodium (Ceftriaxone 1 Gm Vial) 1 gm IVPUSH NOW ONE Stop: 05/07/21 23:31 Last Admin: 05/07/21 23:49 Dose: 1 gm Documented by: Sodium Chloride (Normal Saline) 500 mls @ 999 mls/hr IV .BOLUS ONE Stop: 05/07/21 20:12 Last Admin: 05/07/21 20:45 Dose: 999 mls/hr Documented by: Sodium Chloride (Normal Saline) 500 mls @ 999 mls/hr IV .BOLUS ONE Stop: 05/07/21 21:55 Last Admin: 05/07/21 23:45 Dose: Not Given Documented by: Magnesium Sulfate 2 gm/ Premix 50 mls @ 12.5 mls/hr IV ONETIME ONE Stop: 05/08/21 03:22 Last Admin: 05/07/21 23:49 Dose: 12.5 mls/hr Documented by: Insulin Human Lispro (Insulin Lispro 100 Unit/Ml 3 Ml Kwikpen) 0 unit SUBCUT NOW ONE; Protocol Stop: 05/07/21 23:46 Last Admin: 05/08/21 01:18 Dose: 2 units Documented by: - Exam Urinary Catheter Total Time: 0Days 4Hours General: Alert, Cooperative, Other (He knows he is in [place] and he knows is [place] today.) Lungs: Clear to Auscultation, Normal Respiratory Effort Cardiovascular: Regular Rate, Regular Rhythm, No Murmurs - Patient Data Lab Results Last 24 hrs: Laboratory Results - last 24 hr 05/08/21 05/08/21 05/08/21 Range/Units 11:34 17:24 21:06 POC Glucose 140 H 194 H 218 H (80-116) mg/dL 05/09/21 Range/Units 06:08 POC Glucose 97 D (80-116) mg/dL Result Diagrams: 05/08/21 06:30 05/08/21 06:30 James Results Last 24 hrs: Microbiology 05/07/21 20:50 Urine Culture - Preliminary Urine, Catheterized NO GROWTH AFTER 1 DAY 05/07/21 23:25 Aerobic Blood Culture - Preliminary Blood - Venous - Lab Draw NO GROWTH AFTER 1 DAY Anaerobic Blood Culture - Preliminary NO GROWTH AFTER 1 DAY 05/07/21 23:15 Aerobic Blood Culture - Preliminary Blood - Venous NO GROWTH AFTER 1 DAY Anaerobic Blood Culture - Preliminary NO GROWTH AFTER 1 DAY Sepsis Event Note - Evaluation Sepsis Screening Result: No Definite Risk - Focused Exam Vital Signs: Vital Signs Temp Pulse Resp BP Pulse Ox 05/09/21 00:00 97.5 F 80 16 117/70 95 - Problem List & Annotations (1) Palliative care status SNOMED Code(s): 593052133 Code(s): Z51.5 - ENCOUNTER FOR PALLIATIVE CARE Status: Acute Current Visi t: Yes (2) Dehydration SNOMED Code(s): 62030671 Code(s): E86.0 - DEHYDRATION Status: Acute Current Visit: Yes (3) Syncope and collapse SNOMED Code(s): 726534029 Code(s): R55 - SYNCOPE AND COLLAPSE Status: Acute Current Visit: Yes (4) UTI (urinary tract infection) SNOMED Code(s): 83010624 Code(s): N39.0 - URINARY TRACT INFECTION, SITE NOT SPECIFIED Status: Acute Current Visit: Yes Qualifiers: Urinary tract infection type: site unspecified Hematuria presence: with hematuria Qualified Code(s): N39.0 - Urinary tract infection, site not specified; R31.9 - Hematuria, unspecified (5) Dementia SNOMED Code(s): 92016117 Code(s): F03.90 - UNSPECIFIED DEMENTIA WITHOUT BEHAVIORAL DISTURBANCE Status: Chronic Current Visit: No (6) Diabetes SNOMED Code(s): 11534920 Code(s): E11.9 - TYPE 2 DIABETES MELLITUS WITHOUT COMPLICATIONS Status: Chronic Current Visit: No - Problem List Review Problem List Initiated/Reviewed/Updated: Yes - My Orders Last 24 Hours: My Active Orders 05/08/21 10:00 Enoxaparin [Lovenox] 30 mg SUBCUT Q24H 05/08/21 10:04 Nystatin [Nystop] 1 gm TOP BID PRN 05/08/21 12:00 Acetaminophen [Tylenol Arthritis Pain] 650 mg PO BID@1200,2100 Aspirin [Halfprin] 81 mg PO DAILY@1200 FLUoxetine [PROzac] 20 mg PO DAILY@1200 carvediloL [Coreg] 3.125 mg PO BID@1200,1800 metFORMIN [Glucophage] 500 mg PO BID@1200,2100 05/08/21 21:00 Donepezil [Aricept] 5 mg PO BEDTIME QUEtiapine [SEROquel] 50 mg PO BEDTIME - Plan Plan:: 1. Transfer back to [facility] on Cipro. 2. Check on urine culture in 2 days.
--- NOTE | 2021-05-09 08:56 | PCM.DCSUM1 ---
Discharge Summary - Hospital Course HPI Initial Comments: Hospital course-patient was admitted for Rocepidn for antibiotics was UTI and IV fluids. By later in the day patient was doing much better. Able to eat and drink and very lucid. We kept him for between 24-48 hours and he did fine. He had no concerns and he was not have a syncopal episodes. His urine culture is not back yet and will have to be followed up. Sent to [facility] where he lives with Cipro 500 twice a day. This was checked with pharmacy to make sure it was okay for his kidneys. Brief History: This is an 89-year-old male patient with essential. He can answer questions but doesn't even know why he is here. I had to refer to the old records of the ER note for his history. He is unable to give a history today. According to the note he is lethargic syncopal. Brought to the ER by ambulance and found to have a UTI and some dehydration and weakness. He was admitted for observation. Diagnosis: Stroke: No - Discharge Data Discharge Date: 05/09/21 Discharge Disposition: DC/Tfer to [facility] Condition: Fair - Referral to Home Health Primary Care Physician: Brandt Perkins MD - Discharge Diagnosis/Problem(s) (1) Palliative care status SNOMED Code(s): 501046289 ICD Code: Z51.5 - ENCOUNTER FOR PALLIATIVE CARE Status: Acute Current Visit: Yes (2) Dehydration SNOMED Code(s): 40172508 ICD Code: E86.0 - DEHYDRATION Status: Acute Current Visit: Yes (3) Syncope and collapse SNOMED Code(s): 720033369 ICD Code: R55 - SYNCOPE AND COLLAPSE Status: Acute Current Visit: Yes (4) UTI (urinary tract infection) SNOMED Code(s): 29593505 ICD Code: N39.0 - URINARY TRACT INFECTION, SITE NOT SPECIFIED Status: Acute Current Visit: Yes Qualifiers: Urinary tract infection type: site unspecified Hematuria presence: with hematuria Qualified Code(s): N39.0 - Urinary tract infection, site not specified; R31.9 - Hematuria, unspecified (5) Dementia SNOMED Code(s): 11661419 ICD Code: F03.90 - UNSPECIFIED DEMENTIA WITHOUT BEHAVIORAL DISTURBANCE Status: Chronic Current Visit: No (6) Diabetes SNOMED Code(s): 02132158 ICD Code: E11.9 - TYPE 2 DIABETES MELLITUS WITHOUT COMPLICATIONS Status: Chronic Current Visit: No - Patient Instructions Diet: Diabetic Diet Activity: As Tolerated Driving: Do Not Drive Showering/Bathing: May Shower Notify Provider of: Fever, Increased Pain Other/Special Instructions: 1. Recheck with Dr. Perkins in 1 week. - Discharge Plan Prescriptions/Med Rec: Ciprofloxacin HCl [Cipro] 500 mg PO BID #18 tablet Home Medications: Home Meds FLUoxetine HCl [Fluoxetine HCl] 20 mg PO DAILY@1200 10/20/20 [History] QUEtiapine [SEROquel] 50 mg PO BEDTIME 10/20/20 [History] glipiZIDE [Glucotrol] 10 mg PO BID@12,18 10/20/20 [History] Acetaminophen [Acetaminophen ER] 650 mg PO BID 05/08/21 [History] Aspirin [Halfprin] 81 mg PO DAILY 05/08/21 [History] Donepezil HCl 5 mg PO BEDTIME 05/08/21 [History] Nystatin 1 applic TOP BID PRN 05/08/21 [History] carvediloL [Carvedilol] 3.125 mg PO BID 05/08/21 [History] metFORMIN HCl [Metformin HCl] 500 mg PO BID 05/08/21 [History] Ciprofloxacin HCl [Cipro] 500 mg PO BID #18 tablet 05/09/21 [Rx] Patient Handouts: Fall Prevention in Hospitals, Adult, Acute Urinary Retention, Male, [id number], Syncope, Rehs-up-Rhes, Venous Thromboembolism Prevention Forms: ED Department Discharge Referrals: Brandt Perkins MD [Primary Care Provider] - - Discharge Summary/Plan Comment DC Time >30 min.: No - Patient Data Vitals - Most Recent: Last Vital Signs Temp 97.5 F 05/09/21 00:00 Pulse 80 05/09/21 00:00 Resp 16 05/09/21 00:00 BP 117/70 05/09/21 00:00 Pulse Ox 95 05/09/21 00:00 Weight - Most Recent: 172 lb 3.2 oz I&O - Last 24 hours: Intake & Output 05/08/21 05/09/21 05/09/21 22:59 06:59 14:59 Intake Total 2100 Balance 2100 Lab Results - Last 24 hrs: Laboratory Results - last 24 hr 05/08/21 05/08/21 05/08/21 Range/Units 11:34 17:24 21:06 POC Glucose 140 H 194 H 218 H (80-116) mg/dL 05/09/21 Range/Units 06:08 POC Glucose 97 D (80-116) mg/dL DUYEN Results - Last 24 hrs: Microbiology 05/07/21 20:50 Urine Culture - Preliminary Urine, Catheterized NO GROWTH AFTER 1 DAY 05/07/21 23:25 Aerobic Blood Culture - Preliminary Blood - Venous - Lab Draw NO GROWTH AFTER 1 DAY Anaerobic Blood Culture - Preliminary NO GROWTH AFTER 1 DAY 05/07/21 23:15 Aerobic Blood Culture - Preliminary Blood - Venous NO GROWTH AFTER 1 DAY Anaerobic Blood Culture - Preliminary NO GROWTH AFTER 1 DAY Med Orders - Current: Current Medications Acetaminophen (Acetaminophen 325 Mg Tab) 650 mg PO Q4H PRN PRN Reason: Pain (Mild 1-3)/fever Acetaminophen (Acetaminophen 650 Mg Tab.Er *Ptom) 650 mg PO BID@1200,2100 [facility] Last Admin: 05/08/21 21:08 Dose: 650 mg Documented by: Aspirin (Aspirin 81 Mg Tab.Ec *Ptom) 81 mg PO DAILY@1200 [facility] Last Admin: 05/08/21 11:53 Dose: 81 mg Documented by: Carvedilol (Carvedilol 3.125 Mg Tab *Ptom) 3.125 mg PO BID@1200,1800 [facility] Last Admin: 05/08/21 18:54 Dose: 3.125 mg Documented by: Ceftriaxone Sodium (Ceftriaxone 1 Gm Vial) 1 gm IVPUSH Q24H [facility] Last Admin: 05/08/21 21:09 Dose: 1 gm Documented by: Dextrose/Water (50% Dextrose In Water 50 Ml Syringe) 50 ml IVPUSH ASDIRECTED PRN PRN Reason: Hypoglycemia Donepezil HCl (Donepezil 5 Mg Tab *Ptom) 5 mg PO BEDTIME [facility] Last Admin: 05/08/21 21:07 Dose: 5 mg Documented by: Enoxaparin Sodium (Enoxaparin 30 Mg/0.3 Ml Syringe) 30 mg SUBCUT Q24H [facility] Last Admin: 05/08/21 11:43 Dose: 30 mg Documented by: Fluoxetine HCl (Fluoxetine 20 Mg Cap *Ptom) 20 mg PO DAILY@1200 [facility] Last Admin: 05/08/21 11:53 Dose: 20 mg Documented by: Glucagon (Glucagon,Human Recombinant 1 Mg Vial) 1 mg IM ASDIRECTED PRN PRN Reason: Hypoglycemia Sodium Chloride (Normal Saline) 1,000 mls @ 100 mls/hr IV ASDIRECTED [facility] Last Admin: 05/08/21 12:17 Dose: 150 mls/hr Documented by: Insulin Human Lispro (Insulin Lispro 100 Unit/Ml 3 Ml Kwikpen) 0 unit SUBCUT TIDMEALS [facility]; Protocol Last Admin: 05/09/21 08:23 Dose: Not Given Documented by: Metformin HCl (Metformin 500 Mg Tab *Ptom) 500 mg PO BID@1200,2100 [facility] Last Admin: 05/08/21 21:08 Dose: 500 mg Documented by: Nystatin (Nystatin Topical Powder 15 Gm Bottle) 1 gm TOP BID PRN PRN Reason: Rash Ondansetron HCl (Ondansetron 4 Mg/2 Ml Sdv) 4 mg IV Q6H PRN PRN Reason: Nausea/Vomiting Quetiapine Fumarate (Quetiapine 50 Mg Tab *Ptom) 50 mg PO BEDTIME [facility] Last Admin: 05/08/21 21:08 Dose: 50 mg Documented by: Discontinued Medications Ceftriaxone Sodium (Ceftriaxone 1 Gm Vial) 1 gm IVPUSH NOW ONE Stop: 05/07/21 23:31 Last Admin: 05/07/21 23:49 Dose: 1 gm Documented by: Sodium Chloride (Normal Saline) 500 mls @ 999 mls/hr IV .BOLUS ONE Stop: 05/07/21 20:12 Last Admin: 05/07/21 20:45 Dose: 999 mls/hr Documented by: Sodium Chloride (Normal Saline) 500 mls @ 999 mls/hr IV .BOLUS ONE Stop: 05/07/21 21:55 Last Admin: 05/07/21 23:45 Dose: Not Given Documented by: Magnesium Sulfate 2 gm/ Premix 50 mls @ 12.5 mls/hr IV ONETIME ONE Stop: 05/08/21 03:22 Last Admin: 05/07/21 23:49 Dose: 12.5 mls/hr Documented by: Insulin Human Lispro (Insulin Lispro 100 Unit/Ml 3 Ml Kwikpen) 0 unit SUBCUT NOW ONE; Protocol Stop: 05/07/21 23:46 Last Admin: 05/08/21 01:18 Dose: 2 units Documented by:
[2021-05-09] MEDS: Enoxaparin 30 MG/0.3 ML Syringe SUBCUT SCH (11:22)
[2021-05-09] MEDS: Carvedilol 3.125 MG Tab *PTOM PO SCH (14:32)
[2021-05-09] MEDS: metFORMIN 500 MG Tab *PTOM PO SCH (14:32)
[2021-05-09] MEDS: Aspirin 81 MG Tab.EC *PTOM PO SCH (14:32)
[2021-05-09] MEDS: FLUoxetine 20 MG Cap *PTOM PO SCH (14:32)
[2021-05-09] MEDS: Acetaminophen 650 MG Tab.ER *PTOM PO SCH (14:33)
== END 2021-05-09 09:35 ==
LOC: FB.ED 19:15 → FB.MS 23:07
PROVIDERS: ADMIT Emergency Medicine; ATTEND Family Medicine
DX: R55 Syncope and collapse (principal); N39.0 Urinary tract infection, site not specified; E86.0 Dehydration; F03.90 Unspecified dementia, unspecified severity, without behavioral disturbance, psychotic disturbance, mood disturbance, and anxiety; I25.10 Atherosclerotic heart disease of native coronary artery without angina pectoris; E78.00 Pure hypercholesterolemia, unspecified; I10 Essential (primary) hypertension; I25.2 Old myocardial infarction; E11.9 Type 2 diabetes mellitus without complications; Z95.0 Presence of cardiac pacemaker; Z79.899 Other long term (current) drug therapy; Z79.82 Long term (current) use of aspirin; Z79.84 Long term (current) use of oral hypoglycemic drugs; Z20.822 Contact with and (suspected) exposure to COVID-19
CPT/HCPCS: 36415; 70450; 71045; 74176; 80048; 80053; 81001; 82947; 83605; 83735; 84484; 85025; 87040; 87086; 93005; 93010; 96365; 96372; 96375; 96376; 99217; 99219; 99285; 99285-25; A9270-GY; G0378; J0696; J1650; J1815; J3475; J7030; J7040; U0002